=== PATIENT | female | born 1930 | race Caucasian/White ===

== ENCOUNTER 2017-08-25 13:01 | Inpatient (IN) | payer OTHER, MEDICARE ==
[2017-08-25 13:14] VITALS: BMI 25.0
--- NOTE | 2017-08-25 13:39 | PDOC ---
History of Present Illness - General Chief Complaint: Altered Mental Status Stated Complaint: TREMORS, ALTERED MENTAL STATUS Time Seen by Provider: 08/25/17 13:29 History Source: Patient, Family Exam Limitations: Dementia - History of Present Illness Initial Comments: 08/25/17 14:22 Patient is an 87 year old female presenting with one day of increasing agitation and decline in mental status. 08/25/17 14:48 Past History - Past Medical History Allergies/Adverse Reactions: Allergies Allergy/AdvReac Type Severity Reaction Status Date / Time No Known Allergies Allergy Verified 08/25/17 13:13 Cardiac Disorders: Yes Dementia: Yes HTN: Yes Other medical history: ? ABD ANEURYSM, VS ABD AORTIC ANEURYSM - Suicide/Smoking/Psychosocial Hx Smoking History: Never smoked Hx Alcohol Use: No Drug/Substance Use Hx: No Substance Use Type: None *Physical Exam - Vital Signs Last Vital Signs Temp Pulse Resp BP Pulse Ox 98.5 F 84 20 159/84 96 08/25/17 13:07 08/25/17 13:07 08/25/17 13:07 08/25/17 13:07 08/25/17 13:07 ED Treatment Course - LABORATORY CBC & Chemistry Diagram: 08/25/17 14:36 08/25/17 14:36 Medical Decision Making - Medical Decision Making 87 year old with history of advanced dementia presenting after one day of increased aggregation and confusion and c/o chest/abdomen pain. Patient was also wondering unobserved and is c/o headache. Ddx includes but is not limited to traumatic head injury, infection, advancing dementia EKG CXR CBC, CMP Cardiac enzymes Lipase UA Monitor and reassess 08/25/17 14:23 Rectal temp 99.9, afebrile 08/25/17 14:32 UA reviewed and non-concerning 08/25/17 15:05 CBC WBC 9.0 K/mm3 (4.0-10.0) 08/25/17 14:36 RBC 4.41 M/mm3 (3.60-5.2) 08/25/17 14:36 Hgb 12.9 GM/dL (10.7-15.3) 08/25/17 14:36 Hct 38.6 % (32.4-45.2) 08/25/17 14:36 MCV 87.5 fl (80-96) 08/25/17 14:36 MCH 29.3 pg (25.7-33.7) 08/25/17 14:36 MCHC 33.5 g/dl (32.0-36.0) 08/25/17 14:36 RDW 14.0 % (11.6-15.6) 08/25/17 14:36 Plt Count 163 K/MM3 (134-434) 08/25/17 14:36 MPV 7.3 fl (7.5-11.1) L 08/25/17 14:36 Neutrophils % 69.2 % (42.8-82.8) 08/25/17 14:36 Lymphocytes % 21.7 % (8-40) 08/25/17 14:36 Monocytes % 7.2 % (3.8-10.2) 08/25/17 14:36 Eosinophils % 1.1 % (0-4.5) 08/25/17 14:36 Basophils % 0.8 % (0-2.0) 08/25/17 14:36 Within normal limits 08/25/17 15:48 Labs and imaging reviewed, benign labs, chest xray and head ct negative for acute pathology, UA negative for infection Repeat abdominal exam significant for continued mild RUQ tenderness 08/25/17 16:05 Requesting home Seroquil medication, 100 mg 08/25/17 16:06 *DC/Admit/Observation/Transfer Diagnosis at time of Disposition: Altered mental status Chest pain Qualifiers: Chest pain type: unspecified Qualified Code(s): R07.9 - Chest pain, unspecified ; R07.9 - Chest pain, unspecified - Discharge Dispostion Condition at time of disposition: Stable Admit: Yes
[2017-08-25 14:24] LABS: URINE APPEARANCE CLEAR; URINE BILIRUBIN NEGATIVE (NEGATIVE); URINE BLOOD NEGATIVE (NEGATIVE); URINE COLOR YELLOW; URINE GLUCOSE (UA) NEGATIVE (NEGATIVE); URINE KETONE NEGATIVE (NEGATIVE); URINE NITRITE NEGATIVE (NEGATIVE); URINE PROTEIN NEGATIVE (NEGATIVE); URINE UROBILINOGEN NEGATIVE mg/dL (0.2-1.0)
[2017-08-25 14:40] LABS: BASOPHIL 0.8 % (0-2.0); EOSINOPHIL 1.1 % (0-4.5); MCH 29.3 pg (25.7-33.7); MCHC 33.5 g/dl (32.0-36.0); MEAN CELL VOLUME 87.5 fl (80-96); MEAN PLT VOLUME 7.3 fl (7.5-11.1); NEUTROPHILS 69.2 % (42.8-82.8); PLATELET COUNT 163 K/MM3 (134-434)
--- NOTE | 2017-08-25 15:21 | PDOC ---
Attending Attestation - Resident Resident Name: Karin,Jon - ED Attending Attestation I have performed the following: I have examined & evaluated the patient, The case was reviewed & discussed with the resident, I agree w/resident's findings & plan, Exceptions are as noted - Medical Decision Making 08/25/17 15:19 I, Dr. Yvrose Aaron, DO, attest that this document has been prepared under my direction and personally reviewed by me in its entirety. I further attest, that it accurately reflects all work, treatment, procedures and medical decision -making performed by me. a/p: 87yo demented female with worsening agitation, ran away from home, and lower abd pain/dysuria/cp/[place] -head ct -ekg/cxr -labs -ua -straight cath -reassess -family at the bedside and agrees with the plan 08/25/17 16:32 no cp at this time. discussed labs with the patients family. will place in obs for further eval of cp. discussed with dr. ramirez, requests consult to dr. montano. 08/25/17 16:33 ruq ultrasound is negative for acute yaron, no stones, no gb wall thickening, no pericholecystic fluid <Yvrose Aaron - Last Filed: 08/25/17 16:33> - HPI HPI: 08/25/17 16:37 Patient is a 87 year old female with a significant past medical history of Dementia, who presents to the ED s/p altered mental status. As per patient's niece, patient was not at baseline this morning and was noted to be agitated and violent. She reports patient was in shower this morning when she was noted to have walked out of the house and down the street. Patient reports experiencing intermittent chest pain and headache secondary to altered mental status. In the ED patient reports having slight abdominal pain and dysuria secondary to altered mental status. As per patient's niece, patient has been experiencing slight trembling since this morning. Denies fever, chills. Denies coughing, vomiting. Denies SOB. Denies any other symptoms. Allergies: None Surgical history: None Social history: Lives with niece: PMD: Dr. Gonzalez - Physicial Exam PE: 08/25/17 16:37 GENERAL: +Alert to person. +Awareness of incident. +Confused. Awake, and fully oriented, in no acute distress HEAD: No signs of trauma EYES: PERRLA, EOMI, sclera anicteric, conjunctiva clear ENT: Auricles normal inspection, hearing grossly normal, nares patent, oropharynx clear without exudates. Moist mucosa NECK: Normal ROM, supple, no lymphadenopathy, JVD, or masses LUNGS: Breath sounds equal, clear to auscultation bilaterally. No wheezes, and no crackles HEART: +Systolic ejection murmur Regular rate and rhythm, normal S1 and S2, rubs or gallops ABDOMEN: +mild super pubic tenderness. Soft, nontender, normoactive bowel sounds. No guarding, no rebound. No masses EXTREMITIES: +Trace edema in legs bilaterally. Normal range of motion. No clubbing or cyanosis. No cords, erythema, or tenderness NEUROLOGICAL: Cranial nerves II through XII grossly intact. Normal speech, normal gait SKIN: Warm, Dry, normal turgor, no rashes or lesions noted. - Medical Decision Making 08/25/17 16:37 Documentation prepared by Adam Killian, acting as medical affairs manager for Yvrose Aaron DO, MD/. <Adam Killian - Last Filed: 08/25/17 16:37> Heart Score/ECG Review - ECG Intrepretation Comment:: 08/25/17 15:21 sinus at 73, LVH, nl axis, no acute s/t twave findings <Yvrose Aaron - Last Filed: 08/25/17 16:33>
[2017-08-25 15:38] LABS: ALBUMIN 3.4 g/dl (3.4-5.0); ANION GAP 7 (8-16); BILIRUBIN,TOTAL 0.5 mg/dL (0.2-1.0); CALCIUM 8.3 mg/dL (8.5-10.1); CO2 30 mmol/L (21-32); CREATININE 0.6 mg/dL (0.55-1.02); GLUCOSE,RANDOM 128 mg/dL (74-106); SGPT/ALT 18 U/L (12-78); TOT PROT 6.2 g/dl (6.4-8.2)
[2017-08-25 15:41] LABS: ALK PHOS 88 U/L (45-117); CPK 63 IU/L (26-192); TROPONIN I < 0.02 ng/ml (0.00-0.05)
[2017-08-25 15:43] LABS: SGOT/AST 19 U/L (15-37)
[2017-08-25] MEDS ORDERED: QUEtiapine FUMARATE 100 MG TABLET (FP) PO ONE (16:05)
[2017-08-25] MEDS ORDERED: QUEtiapine FUMARATE 100 MG TABLET (FP) ONE (16:09)
[2017-08-25 17:44] LABS: URINE LEUK ESTERASE Negative (NEGATIVE)
[2017-08-25 19:41] LABS: CHOLESTEROL 131 mg/dL (50-200)
[2017-08-25] MEDS: CARVEDILOL 3.125 MG TABLET (FP) PO SCH (22:40)
[2017-08-26] MEDS: LORazepam 2 MG/ML SDV VIAL IM PRN (05:58)
[2017-08-26 08:09] LABS: ALK PHOS 102 U/L (45-117); ANION GAP 9 (8-16); CALCIUM 8.7 mg/dL (8.5-10.1); CO2 28 mmol/L (21-32); CREATININE 0.7 mg/dL (0.55-1.02); GLUCOSE,RANDOM 141 mg/dL (74-106); SGOT/AST 19 U/L (15-37); SGPT/ALT 19 U/L (12-78); TOT PROT 6.9 g/dl (6.4-8.2)
[2017-08-26] MEDS ORDERED: PATIENT'S OWN MEDICATION (NON-FORMULARY) (Omeprazole Magnesium [Prilosec] 20 MG) PO SCH (10:00)
[2017-08-26] MEDS ORDERED: PATIENT'S OWN MEDICATION (NON-FORMULARY) (Multivit-Min/Fa/Lycopen/Lutein [Centrum Silver T PO SCH (10:00)
--- NOTE | 2017-08-26 11:18 | CONSULT ---
Consult Consult Specialty:: Cardiology (Dr. Kate) Referred by:: Medicine Reason for Consultation:: Chest pain - History of Present Illness Chief Complaint: Chest pain History of Present Illness: 87 yo female with HTN History limited by poor historian given dementia and no prior visits to [facility] Brought to the ED du to decline in mental status, aggitation and reported chest pain On questioning, patient does endorse episodes of epigastric discomfort and bilateral flank pain, but no chest/substernal discomfort Has ? history (according to the chart) of abdominal aortic aneurysm In ED noted Temp 99.9 Cardiac enzymes were negative x2 Currently she denies any discomfort - History Source History Provided By: Patient, Medical Record Limitations to Obtaining History: Dementia - Past Medical History RESIDENTIAL AIDE: Yes: Dementia Cardio/Vascular: Yes: Aneurysm ...: No - Alcohol/Substance Use Hx Alcohol Use: No - Smoking History Smoking history: Never smoked Have you smoked in the past 12 months: No Home Medications - Allergies Allergies/Adverse Reactions: Allergies Allergy/AdvReac Type Severity Reaction Status Date / Time No Known Allergies Allergy Verified 08/25/17 13:13 - Home Medications Home Medications: Ambulatory Orders Carvedilol [Coreg -] 3.125 mg PO BID 08/25/17 Cyanocobalamin (Vitamin B-12) [B-12] 1,000 mcg PO DAILY 08/25/17 Digoxin 125 mcg PO DAILY 08/25/17 Losartan Potassium [Cozaar] 50 mg PO DAILY 08/25/17 Multivit-Min/FA/Lycopen/Lutein [Centrum Silver Tablet] 1 tab PO DAILY 08/25/17 Omeprazole Magnesium [Prilosec] 20 mg PO DAILY 08/25/17 Quetiapine Fumarate [Seroquel] 100 tab PO DAILY 08/25/17 Torsemide [Demadex -] 20 mg PO Q2D 08/25/17 Review of Systems Unable to obtain ROS, reason: Limited ROS by dementia Physical Exam Vital Signs: Vital Signs Temperature 98 F 08/26/17 10:00 Pulse Rate 88 08/26/17 10:00 Respiratory Rate 18 08/26/17 10:00 Blood Pressure 126/59 08/26/17 10:00 O2 Sat by Pulse Oximetry (%) 97 08/26/17 10:00 Constitutional: Yes: No Distress, Calm Eyes: Yes: WNL HENT: Yes: WNL Neck: Yes: WNL Cardiovascular: Yes: Regular Rate and Rhythm Respiratory: Yes: CTA Bilaterally Gastrointestinal: Yes: Normal Bowel Sounds, Other (No pulsatile mass) Extremities: Yes: WNL Edema: No Labs: CBC, BMP 08/26/17 05:35 Imaging - Results Chest X-ray: Image Reviewed (Heavily calcified aorta) X-ray: Image Reviewed EKG: Image Reviewed (Done at 09:57 on 08/26/2017 NSR with LVH and LAD) Assessment/Plan 87 yo female with HTN Admitted with mental status changes and aggitation Episode of reported chest pain 1) Chest pain -Pain on history is more epigastric/flank -ECG without ischemic changes and enzymes negative -Would obtain records of the history of a reported AAA, and if true would consider imaging her aorta with CTA as this may contribute to epigastric or flank pain. On CXR her aortic arch is heavily calcified. Tele so far has shown NSR with PACs -Would continue he current CV regimen -Unclear why she is on Dig at home and may be reasonable to continue tele to see if she has PAF. Would check Dig level as cause of MS change. 2) HTN -Bp well controlled -Continue losartan and carvedilol
[2017-08-26] MEDS ORDERED: QUEtiapine FUMARATE 50 MG TABLET ONE (11:33)
[2017-08-26] MEDS: MULTIVITAMINS (DAILY MVI) TABLET (FP) PO SCH (11:35)
[2017-08-26] MEDS: QUEtiapine FUMARATE 100 MG TABLET (FP) PO SCH (11:35)
[2017-08-26] MEDS: CYANOCOBALAMIN 1,000 MCG TABLET (FP) PO SCH (11:35)
[2017-08-26] MEDS: LOSARTAN POTASSIUM 25 MG TABLET PO SCH (11:36)
[2017-08-26] MEDS: CARVEDILOL 3.125 MG TABLET (FP) PO SCH ×2 (11:36→21:56)
[2017-08-26] MEDS: ENOXAPARIN NA (PORCINE) 40 MG/0.4 ML DISP.SYRIN SQ SCH (11:36)
[2017-08-26] MEDS: PANTOPRAZOLE 20 MG TABLET (FP) PO SCH (11:36)
[2017-08-26] MEDS: DIGOXIN 0.125 MG TABLET (FP) PO SCH (11:37)
--- NOTE | 2017-08-26 12:05 | HP ---
Admitting History and Physical - Primary Care Physician PCP: Franco Gonzalez - Admission Chief Complaint: Acute Agitation History of Present Illness: Elderly F recently moved to are from [place] H/O HTN, CHF, High Cholesterol, Dementia , BIB family with an episode of agitation, patient was very agitated and walked out of the house in Ed c/o chest pain admitted for further evaluation, patient is unable to provide much information, as per family patient has H/O Dementia and agittaion in the past but this episode was more intense, no documented fever, chills, nausea, vomiting, diarrhea head traum, in ED EKG unremarkale, CBC , BMP , Trop all normal. History Source: Patient, Family Member - Past Medical History REGIONAL OFFICE COORDINATOR: Yes: Dementia Cardiovascular: Yes: Aneurysm ...: No - Smoking History Smoking history: Never smoked Have you smoked in the past 12 months: No - Alcohol/Substance Use Hx Alcohol Use: No Home Medications - Allergies Allergies/Adverse Reactions: Allergies Allergy/AdvReac Type Severity Reaction Status Date / Time No Known Allergies Allergy Verified 08/25/17 13:13 - Home Medications Home Medications: Ambulatory Orders Carvedilol [Coreg -] 3.125 mg PO BID 08/25/17 Cyanocobalamin (Vitamin B-12) [B-12] 1,000 mcg PO DAILY 08/25/17 Digoxin 125 mcg PO DAILY 08/25/17 Losartan Potassium [Cozaar] 50 mg PO DAILY 08/25/17 Multivit-Min/FA/Lycopen/Lutein [Centrum Silver Tablet] 1 tab PO DAILY 08/25/17 Omeprazole Magnesium [Prilosec] 20 mg PO DAILY 08/25/17 Quetiapine Fumarate [Seroquel] 100 tab PO DAILY 08/25/17 Torsemide [Demadex -] 20 mg PO Q2D 08/25/17 Review of Systems - Review of Systems Constitutional: reports: No Symptoms HENT: reports: No Symptoms, Difficult Swallowing Neck: reports: No Symptoms, Decreased ROM Cardiovascular: reports: Chest Pain Respiratory: reports: SOB Gastrointestinal: reports: No Symptoms Genitourinary: reports: No Symptoms Physical Examination Vital Signs: Vital Signs Temperature 98 F 08/26/17 10:00 Pulse Rate 90 08/26/17 11:37 Respiratory Rate 18 08/26/17 10:00 Blood Pressure 126/59 08/26/17 10:00 O2 Sat by Pulse Oximetry (%) 97 08/26/17 10:00 Constitutional: Yes: Well Nourished, No Distress, Other (agitated) Eyes: Yes: Conjunctiva Clear, EOM Intact HENT: Yes: WNL, Atraumatic, Normocephalic Neck: Yes: WNL, Supple, Trachea Midline Cardiovascular: Yes: Regular Rate and Rhythm, Pulse Irregular, Murmur. No: Bruit, JVD Respiratory: Yes: Regular, CTA Bilaterally Gastrointestinal: Yes: WNL, Normal Bowel Sounds, Soft Musculoskeletal: Yes: WNL. No: Back Pain Extremities: Yes: WNL. No: Calf Tenderness Edema: LLE: 1+, RLE: 1+ Peripheral Pulses: Left Doralis Pedis: 1+, Right Dorsalis Pedis: 1+ Neurological: Yes: WNL, Oriented Labs: CBC, BMP 08/26/17 05:35 CBC WBC 9.0 K/mm3 (4.0-10.0) 08/25/17 14:36 RBC 4.41 M/mm3 (3.60-5.2) 08/25/17 14:36 Hgb 12.9 GM/dL (10.7-15.3) 08/25/17 14:36 Hct 38.6 % (32.4-45.2) 08/25/17 14:36 MCV 87.5 fl (80-96) 08/25/17 14:36 MCH 29.3 pg (25.7-33.7) 08/25/17 14:36 MCHC 33.5 g/dl (32.0-36.0) 08/25/17 14:36 RDW 14.0 % (11.6-15.6) 08/25/17 14:36 Plt Count 163 K/MM3 (134-434) 08/25/17 14:36 MPV 7.3 fl (7.5-11.1) L 08/25/17 14:36 Neutrophils % 69.2 % (42.8-82.8) 08/25/17 14:36 Lymphocytes % 21.7 % (8-40) 08/25/17 14:36 Monocytes % 7.2 % (3.8-10.2) 08/25/17 14:36 Eosinophils % 1.1 % (0-4.5) 08/25/17 14:36 Basophils % 0.8 % (0-2.0) 08/25/17 14:36 CMP Sodium 139 mmol/L (136-145) 08/26/17 05:35 Potassium 3.9 mmol/L (3.5-5.1) 08/26/17 05:35 Chloride 102 mmol/L (98-107) 08/26/17 05:35 Carbon Dioxide 28 mmol/L (21-32) 08/26/17 05:35 Anion Gap 9 (8-16) 08/26/17 05:35 BUN 12 mg/dL (7-18) 08/26/17 05:35 Creatinine 0.7 mg/dL (0.55-1.02) 08/26/17 05:35 Creat Clearance w eGFR > 60 (>60) 08/26/17 05:35 Random Glucose 141 mg/dL (74-106) H 08/26/17 05:35 Hemoglobin A1c % 6.5 % (4.8-6.0) H 08/26/17 05:35 Calcium 8.7 mg/dL (8.5-10.1) 08/26/17 05:35 Total Bilirubin 1.0 mg/dL (0.2-1.0) D 08/26/17 05:35 AST 19 U/L (15-37) 08/26/17 05:35 ALT 19 U/L (12-78) 08/26/17 05:35 Alkaline Phosphatase 102 U/L (45-117) 08/26/17 05:35 Creatine Kinase 63 IU/L (26-192) 08/25/17 14:36 Troponin I 0.02 ng/ml (0.00-0.05) 08/25/17 19:00 Total Protein 6.9 g/dl (6.4-8.2) 08/26/17 05:35 Albumin 4.0 g/dl (3.4-5.0) 08/26/17 05:35 Triglycerides 184 mg/dL (35-160) H 08/25/17 19:00 Cholesterol 131 mg/dL (50-200) 08/25/17 19:00 Total LDL Cholesterol 65 mg/dL (5-100) 08/25/17 19:00 HDL Cholesterol 47 mg/dL (40-60) 08/25/17 19:00 Lipase 95 U/L (73-393) 08/25/17 14:36 Imaging - Results X-ray: Report Reviewed (Cardiomegaly) Cat Scan: Report Reviewed (Mild atrophy) EKG: Report Reviewed (NSR at 75 LVH, LAD) Problem List - Problems (1) Altered mental status Assessment/Plan: Of unknown etiology base line Dementia, Ct head no acute changes, evaluated by Neurology consult recommend, evaluation for placement. Code(s): R41.82 - ALTERED MENTAL STATUS, UNSPECIFIED (2) Dementia Assessment/Plan: Chronic not on any treatment F/U Dementia W/U B12, TSH Code(s): F03.90 - UNSPECIFIED DEMENTIA WITHOUT BEHAVIORAL DISTURBANCE (3) HTN (hypertension) Assessment/Plan: Well controlled on current home meds Code(s): I10 - ESSENTIAL (PRIMARY) HYPERTENSION (4) Hypercholesteremia Assessment/Plan: Cont Statin F/U TSH HBa1c Code(s): E78.00 - PURE HYPERCHOLESTEROLEMIA, UNSPECIFIED (5) Chest pain Assessment/Plan: Atypical , normal serial Ce and stable EKG murmur + at base , F/U ECHO, serial CE, TSH , HBA1C, Cardiology recommondations. Code(s): R07.9 - CHEST PAIN, UNSPECIFIED Qualifiers: Chest pain type: unspecified Qualified Code(s): R07.9 - Chest pain, unspecified; R07.9 - Chest pain, unspecified (6) AAA (abdominal aortic aneurysm) Assessment/Plan: H/O AAA will screen abdomen for evaluation. Code(s): I71.4 - ABDOMINAL AORTIC ANEURYSM, WITHOUT RUPTURE Assessment/Plan Active Medications Generic Name Dose Route Start Last Admin Trade Name Freq PRN Reason Stop Dose Admin Carvedilol 3.125 mg 08/25/17 22:00 08/26/17 11:36 Coreg - PO 3.125 mg BID DAYDAY Administration Cyanocobalamin 1,000 mcg 08/26/17 10:00 08/26/17 11:35 Vitamin B12 - PO 1,000 mcg DAILY DAYDAY Administration Digoxin 0.125 mg 08/26/17 10:00 08/26/17 11:37 Lanoxin - PO 0.125 mg DAILY DAYDAY Administration Enoxaparin Sodium 40 mg 08/26/17 10:00 08/26/17 11:36 Lovenox - SQ 40 mg DAILY DAYDAY Administration Lorazepam 0.5 mg 08/26/17 05:43 08/26/17 05:58 Ativan Injection - IM 0.5 mg Q8H PRN Administration AGITATION Losartan Potassium 50 mg 08/26/17 10:00 08/26/17 11:36 Cozaar - PO 50 mg DAILY DAYDAY Administration Multivitamins/Minerals/Vitamin C 1 tab 08/26/17 10:00 08/26/17 11:35 Tab-A-Vit - PO 1 tab DAILY DAYDAY Administration Pantoprazole Sodium 20 mg 08/26/17 10:00 08/26/17 11:36 Protonix - PO 20 mg DAILY DAYDAY Administration Quetiapine Fumarate 100 mg 08/26/17 10:00 08/26/17 11:35 Seroquel - PO 100 mg DAILY DAYDAY Administration Torsemide 20 mg 08/27/17 10:00 Demadex - PO Q2D DAYDAY
--- NOTE | 2017-08-26 17:30 | CON.NEURO ---
Consult - Past Medical History MANAGER FOOD: Yes: Dementia Cardio/Vascular: Yes: Aneurysm ...: No - Alcohol/Substance Use Hx Alcohol Use: No - Smoking History Smoking history: Never smoked Have you smoked in the past 12 months: No Home Medications - Allergies Allergies/Adverse Reactions: Allergies Allergy/AdvReac Type Severity Reaction Status Date / Time No Known Allergies Allergy Verified 08/25/17 13:13 - Home Medications Home Medications: Ambulatory Orders Carvedilol [Coreg -] 3.125 mg PO BID 08/25/17 Cyanocobalamin (Vitamin B-12) [B-12] 1,000 mcg PO DAILY 08/25/17 Digoxin 125 mcg PO DAILY 08/25/17 Losartan Potassium [Cozaar] 50 mg PO DAILY 08/25/17 Multivit-Min/FA/Lycopen/Lutein [Centrum Silver Tablet] 1 tab PO DAILY 08/25/17 Omeprazole Magnesium [Prilosec] 20 mg PO DAILY 08/25/17 Quetiapine Fumarate [Seroquel] 100 tab PO DAILY 08/25/17 Torsemide [Demadex -] 20 mg PO Q2D 08/25/17 Physical Exam-Neuro Vital Signs: Vital Signs Temperature 97.4 F L 08/26/17 14:00 Pulse Rate 119 H 08/26/17 14:00 Respiratory Rate 20 08/26/17 14:00 Blood Pressure 119/64 08/26/17 14:00 O2 Sat by Pulse Oximetry (%) 97 08/26/17 10:00 Labs: CBC, BMP 08/26/17 05:35 Imaging - Results Cat Scan: Report Reviewed Assessment/Plan CC brought to hospital for agitation and chest pain HPI 87 year old female history of b12 deficiency , hypertension, was brought [facility] for agitation and confusion. There is no fall or trauma to head, no fever or seizure like activity. Initial work up including xray of chest, ua and ct ehad was unremarkable. As per chart she has history of b12 deficiency and on b12 supplentation. Past Medical History as above. Home Medciation Carvedilol [Coreg -] 3.125 mg PO BID 08/25/17 Cyanocobalamin (Vitamin B-12) [B-12] 1,000 mcg PO DAILY 08/25/17 Digoxin 125 mcg PO DAILY 08/25/17 Losartan Potassium [Cozaar] 50 mg PO DAILY 08/25/17 Multivit-Min/FA/Lycopen/Lutein [Centrum Silver Tablet] 1 tab PO DAILY 08/25/17 Omeprazole Magnesium [Prilosec] 20 mg PO DAILY 08/25/17 Quetiapine Fumarate [Seroquel] 100 tab PO DAILY 08/25/17 Torsemide [Demadex -] 20 mg PO Q2D 08/25/17 Family History , ROS Medication Reviewed in chart Neurological Examiantion drowsy ( just got ativan few minute ago) , patient is opening her and not able to follow command, not agitated at this time moving eye in all direction, no face asymmetry wirhdraws to pain CT HEAD is normal Assessment- Decline due to dementia, ct head is unremarkable Plan -- continue seroquel would do b12,folate tsh she would need placement as family cant handle her at home Feel free to call me if you have any question Chaitanya Warner MD
[2017-08-27] MEDS: LORazepam 2 MG/ML SDV VIAL IM PRN ×2 (03:58→13:56)
[2017-08-27 06:58] LABS: BASOPHIL 0.9 % (0-2.0); EOSINOPHIL 4.2 % (0-4.5); MCH 29.1 pg (25.7-33.7); MCHC 33.2 g/dl (32.0-36.0); MEAN CELL VOLUME 87.6 fl (80-96); MEAN PLT VOLUME 7.9 fl (7.5-11.1); PLATELET COUNT 162 K/MM3 (134-434); WHITE BLOOD COUNT 6.8 K/mm3 (4.0-10.0)
[2017-08-27 07:14] LABS: ANION GAP 12 (8-16); CALCIUM 8.5 mg/dL (8.5-10.1); CO2 28 mmol/L (21-32); CREATININE 0.6 mg/dL (0.55-1.02); GLUCOSE,RANDOM 128 mg/dL (74-106)
[2017-08-27 07:26] LABS: DIGOXIN LEVEL 0.9479 ng/ml (0.8-2.0)
[2017-08-27 08:27] LABS: DIGOXIN LEVEL 0.8432 ng/ml (0.8-2.0)
--- NOTE | 2017-08-27 09:12 | PN ---
Progress Note, Physician Chief Complaint: abd pain, ? cp History of Present Illness: denies any cp, abd pain/flank pain today no sob no palpitations no leg swelling - Current Medication List Current Medications: Active Medications Carvedilol (Coreg -) 3.125 mg PO BID [facility] Last Admin: 08/26/17 21:56 Dose: 3.125 mg Cyanocobalamin (Vitamin B12 -) 1,000 mcg PO DAILY [facility] Last Admin: 08/26/17 11:35 Dose: 1,000 mcg Digoxin (Lanoxin -) 0.125 mg PO DAILY [facility] Last Admin: 08/26/17 11:37 Dose: 0.125 mg Enoxaparin Sodium (Lovenox -) 40 mg SQ DAILY [facility] Last Admin: 08/26/17 11:36 Dose: 40 mg Lorazepam (Ativan Injection -) 0.5 mg IM Q8H PRN PRN Reason: AGITATION Last Admin: 08/27/17 03:58 Dose: 0.5 mg Losartan Potassium (Cozaar -) 50 mg PO DAILY [facility] Last Admin: 08/26/17 11:36 Dose: 50 mg Multivitamins/Minerals/Vitamin C (Tab-A-Vit -) 1 tab PO DAILY [facility] Last Admin: 08/26/17 11:35 Dose: 1 tab Pantoprazole Sodium (Protonix -) 20 mg PO DAILY [facility] Last Admin: 08/26/17 11:36 Dose: 20 mg Quetiapine Fumarate (Seroquel -) 100 mg PO DAILY [facility] Last Admin: 08/26/17 11:35 Dose: 100 mg Torsemide (Demadex -) 20 mg PO Q2D [facility] - Objective Vital Signs: Vital Signs Temperature 97.1 F L 08/27/17 05:39 Pulse Rate 96 H 08/27/17 05:39 Respiratory Rate 20 08/27/17 05:39 Blood Pressure 120/62 08/27/17 05:39 O2 Sat by Pulse Oximetry (%) 98 08/26/17 21:00 Constitutional: Yes: Well Nourished, No Distress, Calm Cardiovascular: Yes: Regular Rate and Rhythm, Murmur (1/6 SUNNY rusb), S1, S2. No : Gallop Respiratory: Yes: Regular, CTA Bilaterally (anteriorly (yandel vest on)). No: Accessory Muscle Use, Rales, Wheezes Extremities: No: Cold Edema: No Neurological: Yes: Alert. No: Seizure Psychiatric: No: Agitated Labs: CBC, BMP 08/27/17 06:25 08/27/17 06:25 - ....Imaging EKG: Other (tele: NSR) Assessment/Plan 87 yo female with HTN, admitted with mental status changes and agitation and reported chest pain prior to ER. Chest pain -Pain on history is more epigastric/flank,though confounded by pt dementia -ECG without ischemic changes and enzymes negative x2 (4.5 hrs apart) -rpt enzymes today -reported history of a AAA. office notes with no documentation of this or prior imaging. pt unable to clarify hx -echo being done at bedside--prelim with signif aorta root dilation -will check CTA of thoracic/aorta to r/o large, potentially symptomatic T/AAA ( abdominal/flank pain). likely not a candidate for open repair given baseline dementia, though ? if EVAR should/could be considered -unclear why she is on dig at home, trying to obtain records--cont med for now ( level ok here) HTN -BP well controlled -Continue home losartan and carvedilol agitation/MS change: -neuro note appreciated--likely due to progression of dementia -CT head neg
[2017-08-27 09:42] LABS: CPK 97 IU/L (26-192); TROPONIN I < 0.02 ng/ml (0.00-0.05)
--- NOTE | 2017-08-27 10:15 | EKG ---
Test Reason : Blood Pressure : / mmHG Vent. Rate : 080 BPM Atrial Rate : 080 BPM P-R Int : 178 ms QRS Dur : 096 ms QT Int : 362 ms P-R-T Axes : 033 -31 007 degrees QTc Int : 417 ms NORMAL SINUS RHYTHM LEFT AXIS DEVIATION LEFT VENTRICULAR HYPERTROPHY WITH REPOLARIZATION ABNORMALITY ABNORMAL ECG WHEN COMPARED WITH ECG OF 25-AUG-2017 14:11, NO SIGNIFICANT CHANGE WAS FOUND Confirmed by FRANCIS OWEN, GLORIA ([id number]) on 08/27/2017 10:15:36 AM Referred By: Yolanda MARQUEZ Confirmed By:GLORIA BLANCO MD
--- NOTE | 2017-08-27 10:24 | PN ---
Progress Note (short form) - Note Progress Note: Neurology History of Present Illness: 87 y/o F recently moved to [facility] from [place] H/O HTN, CHF, High Cholesterol, Dementia , BIB family with an episode of agitation, patient was very agitated and was contacted over the weekend by answering service. Spoke to daughter and advised to bring to ER where he c/o chest pain admitted for further evaluation, patient is unable to provide much information, as per family patient has H/O Dementia and agittaion in the past but this episode was more intense, no documented fever, chills, nausea, vomiting, diarrhea head traum, in ED EKG unremarkale, CBC , BMP , Trop all normal. There is concern of his ability to care for self and daughter reported he has been progressively worsening. CT head completed and did not show acute changes. Seen by Dr. Thapa over the weekend who was covering. Active Medications Carvedilol (Coreg -) 3.125 mg PO BID [facility] Last Admin: 08/26/17 21:56 Dose: 3.125 mg Cyanocobalamin (Vitamin B12 -) 1,000 mcg PO DAILY [facility] Last Admin: 08/26/17 11:35 Dose: 1,000 mcg Digoxin (Lanoxin -) 0.125 mg PO DAILY [facility] Last Admin: 08/26/17 11:37 Dose: 0.125 mg Enoxaparin Sodium (Lovenox -) 40 mg SQ DAILY [facility] Last Admin: 08/26/17 11:36 Dose: 40 mg Lorazepam (Ativan Injection -) 0.5 mg IM Q8H PRN PRN Reason: AGITATION Last Admin: 08/27/17 03:58 Dose: 0.5 mg Losartan Potassium (Cozaar -) 50 mg PO DAILY [facility] Last Admin: 08/26/17 11:36 Dose: 50 mg Multivitamins/Minerals/Vitamin C (Tab-A-Vit -) 1 tab PO DAILY [facility] Last Admin: 08/26/17 11:35 Dose: 1 tab Pantoprazole Sodium (Protonix -) 20 mg PO DAILY [facility] Last Admin: 08/26/17 11:36 Dose: 20 mg Quetiapine Fumarate (Seroquel -) 100 mg PO DAILY [facility] Last Admin: 08/26/17 11:35 Dose: 100 mg Torsemide (Demadex -) 20 mg PO Q2D [facility] Physical Examination Vital Signs: Vital Signs Period Temp Pulse Resp BP Sys/Carranza Pulse Ox Last 24 Hr 97.0 F-97.8 F 68-119 18-20 119-132/62-80 98 Constitutional: Yes: Well Nourished, No Distress, Other (agitated) Eyes: Yes: Conjunctiva Clear, EOM Intact HENT: Yes: WNL, Atraumatic, Normocephalic Neck: Yes: WNL, Supple, Trachea Midline Cardiovascular: Yes: Regular Rate and Rhythm, Pulse Irregular, Murmur. No: Bruit, JVD Respiratory: Yes: Regular, CTA Bilaterally Gastrointestinal: Yes: WNL, Normal Bowel Sounds, Soft Musculoskeletal: Yes: WNL. No: Back Pain Extremities: Yes: WNL. No: Calf Tenderness Edema: LLE: 1+, RLE: 1+ Peripheral Pulses: Left Doralis Pedis: 1+, Right Dorsalis Pedis: 1+ Neurological: CN intact, strength equal, b/l, sensory normal, finger to nose intact Labs: CBC, BMP 08/26/17 05:35 CBC WBC 9.0 K/mm3 (4.0-10.0) 08/25/17 14:36 RBC 4.41 M/mm3 (3.60-5.2) 08/25/17 14:36 Hgb 12.9 GM/dL (10.7-15.3) 08/25/17 14:36 Hct 38.6 % (32.4-45.2) 08/25/17 14:36 MCV 87.5 fl (80-96) 08/25/17 14:36 MCH 29.3 pg (25.7-33.7) 08/25/17 14:36 MCHC 33.5 g/dl (32.0-36.0) 08/25/17 14:36 RDW 14.0 % (11.6-15.6) 08/25/17 14:36 Plt Count 163 K/MM3 (134-434) 08/25/17 14:36 MPV 7.3 fl (7.5-11.1) L 08/25/17 14:36 Neutrophils % 69.2 % (42.8-82.8) 08/25/17 14:36 Lymphocytes % 21.7 % (8-40) 08/25/17 14:36 Monocytes % 7.2 % (3.8-10.2) 08/25/17 14:36 Eosinophils % 1.1 % (0-4.5) 08/25/17 14:36 Basophils % 0.8 % (0-2.0) 08/25/17 14:36 CMP Sodium 139 mmol/L (136-145) 08/26/17 05:35 Potassium 3.9 mmol/L (3.5-5.1) 08/26/17 05:35 Chloride 102 mmol/L (98-107) 08/26/17 05:35 Carbon Dioxide 28 mmol/L (21-32) 08/26/17 05:35 Anion Gap 9 (8-16) 08/26/17 05:35 BUN 12 mg/dL (7-18) 08/26/17 05:35 Creatinine 0.7 mg/dL (0.55-1.02) 08/26/17 05:35 Creat Clearance w eGFR > 60 (>60) 08/26/17 05:35 Random Glucose 141 mg/dL (74-106) H 08/26/17 05:35 Hemoglobin A1c % 6.5 % (4.8-6.0) H 08/26/17 05:35 Calcium 8.7 mg/dL (8.5-10.1) 08/26/17 05:35 Total Bilirubin 1.0 mg/dL (0.2-1.0) D 08/26/17 05:35 AST 19 U/L (15-37) 08/26/17 05:35 ALT 19 U/L (12-78) 08/26/17 05:35 Alkaline Phosphatase 102 U/L (45-117) 08/26/17 05:35 Creatine Kinase 63 IU/L (26-192) 08/25/17 14:36 Troponin I 0.02 ng/ml (0.00-0.05) 08/25/17 19:00 Total Protein 6.9 g/dl (6.4-8.2) 08/26/17 05:35 Albumin 4.0 g/dl (3.4-5.0) 08/26/17 05:35 Triglycerides 184 mg/dL (35-160) H 08/25/17 19:00 Cholesterol 131 mg/dL (50-200) 08/25/17 19:00 Total LDL Cholesterol 65 mg/dL (5-100) 08/25/17 19:00 HDL Cholesterol 47 mg/dL (40-60) 08/25/17 19:00 Lipase 95 U/L (73-393) 08/25/17 14:36 Imaging X-ray: Report Reviewed (Cardiomegaly) Cat Scan: Report Reviewed (Mild atrophy) EKG: Report Reviewed (NSR at 75 LVH, LAD) Plan 87 y/o F recently moved to [facility] from [place] H/O HTN, CHF, High Cholesterol, Dementia , BIB family with an episode of agitation, patient was very agitated and was contacted over the weekend by answering service. Spoke to daughter and advised to bring to ER where he c/o chest pain admitted for further evaluation, patient is unable to provide much information, as per family patient has H/O Dementia and agittaion in the past but this episode was more intense, no documented fever, chills, nausea, vomiting, diarrhea head traum, in ED EKG unremarkale, CBC , BMP , Trop all normal. There is concern of his ability to care for self and daughter reported he has been progressively worsening. CT head completed and did not show acute changes. Seen by Dr. Thapa over the weekend who was covering. This AM, spoke to nurse, daughter did not want to start Aricept. Seroquel being continued. Placement may be needed. Monitor blood pressure Goal range < 140/90 Continue Statin for HLD Fall precautions Consider psych consult Maintain IV/PO hydration Frequent reorientation
[2017-08-27] MEDS ORDERED: QUEtiapine FUMARATE 50 MG TABLET ONE (10:35)
[2017-08-27] MEDS: QUEtiapine FUMARATE 100 MG TABLET (FP) PO SCH (10:39)
[2017-08-27] MEDS: MULTIVITAMINS (DAILY MVI) TABLET (FP) PO SCH (10:39)
[2017-08-27] MEDS: CARVEDILOL 3.125 MG TABLET (FP) PO SCH ×2 (10:39→21:26)
[2017-08-27] MEDS: TORSEMIDE 20 MG TABLET (FP) PO SCH (10:39)
[2017-08-27] MEDS: CYANOCOBALAMIN 1,000 MCG TABLET (FP) PO SCH (10:39)
[2017-08-27] MEDS: DIGOXIN 0.125 MG TABLET (FP) PO SCH (10:40)
[2017-08-27] MEDS: ENOXAPARIN NA (PORCINE) 40 MG/0.4 ML DISP.SYRIN SQ SCH (10:40)
[2017-08-27] MEDS: LOSARTAN POTASSIUM 25 MG TABLET PO SCH (10:40)
[2017-08-27] MEDS: PANTOPRAZOLE 20 MG TABLET (FP) PO SCH (10:40)
--- NOTE | 2017-08-27 14:57 | PN ---
Progress Note, Physician Chief Complaint: Patient says she feels confused. Denies cp, sob, n/v. - Current Medication List Current Medications: Active Medications Carvedilol (Coreg -) 3.125 mg PO BID [facility] Last Admin: 08/27/17 10:39 Dose: 3.125 mg Cyanocobalamin (Vitamin B12 -) 1,000 mcg PO DAILY [facility] Last Admin: 08/27/17 10:39 Dose: 1,000 mcg Digoxin (Lanoxin -) 0.125 mg PO DAILY [facility] Last Admin: 08/27/17 10:40 Dose: 0.125 mg Enoxaparin Sodium (Lovenox -) 40 mg SQ DAILY [facility] Last Admin: 08/27/17 10:40 Dose: 40 mg Lorazepam (Ativan Injection -) 0.5 mg IM Q8H PRN PRN Reason: AGITATION Last Admin: 08/27/17 13:56 Dose: 0.5 mg Losartan Potassium (Cozaar -) 50 mg PO DAILY [facility] Last Admin: 08/27/17 10:40 Dose: 50 mg Multivitamins/Minerals/Vitamin C (Tab-A-Vit -) 1 tab PO DAILY [facility] Last Admin: 08/27/17 10:39 Dose: 1 tab Pantoprazole Sodium (Protonix -) 20 mg PO DAILY [facility] Last Admin: 08/27/17 10:40 Dose: 20 mg Quetiapine Fumarate (Seroquel -) 100 mg PO DAILY [facility] Last Admin: 08/27/17 10:39 Dose: 100 mg Torsemide (Demadex -) 20 mg PO Q2D [facility] Last Admin: 08/27/17 10:39 Dose: 20 mg - Objective Vital Signs: Vital Signs Temperature 36.2 C L 08/27/17 05:39 Pulse Rate 90 08/27/17 10:40 Respiratory Rate 20 08/27/17 05:39 Blood Pressure 120/62 08/27/17 05:39 O2 Sat by Pulse Oximetry (%) 98 08/26/17 21:00 Constitutional: Yes: Well Nourished, No Distress, Calm Cardiovascular: Yes: Regular Rate and Rhythm. No: Gallop, Murmur, Rub Respiratory: Yes: Regular, CTA Bilaterally. No: Rales, Rhonchi, Wheezes Gastrointestinal: Yes: Normal Bowel Sounds, Soft. No: Distention, Tenderness Extremities: Yes: WNL Edema: No Labs: CBC, BMP 08/27/17 06:25 08/27/17 06:25 Problem List - Problems (1) Altered mental status Assessment/Plan: -unclear source of altered mental status -unsure of baseline, appears stable today -appreciate neurology assistance -continue seroquel Code(s): R41.82 - ALTERED MENTAL STATUS, UNSPECIFIED (2) Chest pain Assessment/Plan: -currently chest pain free -appreciate cardiology assistance -CTA ordered Code(s): R07.9 - CHEST PAIN, UNSPECIFIED Qualifiers: Chest pain type: unspecified Qualified Code(s): R07.9 - Chest pain, unspecified; R07.9 - Chest pain, unspecified (3) Dementia Assessment/Plan: -continue seroquel -neurology following Code(s): F03.90 - UNSPECIFIED DEMENTIA WITHOUT BEHAVIORAL DISTURBANCE (4) HTN (hypertension) Assessment/Plan: -controlled -continue coreg, torsemide, and cozaar Code(s): I10 - ESSENTIAL (PRIMARY) HYPERTENSION
[2017-08-28 07:23] LABS: BASOPHIL 1.9 % (0-2.0); EOSINOPHIL 3.7 % (0-4.5); MCH 29.1 pg (25.7-33.7); MCHC 33.1 g/dl (32.0-36.0); MEAN CELL VOLUME 87.9 fl (80-96); MEAN PLT VOLUME 8.2 fl (7.5-11.1); NEUTROPHILS 59.8 % (42.8-82.8); PLATELET COUNT 183 K/MM3 (134-434); RDW 13.8 % (11.6-15.6); WHITE BLOOD COUNT 8.3 K/mm3 (4.0-10.0)
[2017-08-28 08:01] LABS: ANION GAP 13 (8-16); CALCIUM 8.5 mg/dL (8.5-10.1); CO2 31 mmol/L (21-32); GLUCOSE,RANDOM 126 mg/dL (74-106); MAGNESIUM 2.1 mg/dL (1.8-2.4)
[2017-08-28 08:03] LABS: CREATININE 0.8 mg/dL (0.55-1.02); PHOSPHOROUS 5.1 mg/dL (2.5-4.9)
--- NOTE | 2017-08-28 09:53 | PN ---
Progress Note (short form) - Note Progress Note: Neurology History of Present Illness: 87 y/o F recently moved to [facility] from [place] H/O HTN, CHF, High Cholesterol, Dementia , BIB family with an episode of agitation, patient was very agitated and was contacted over the weekend by answering service. Spoke to daughter and advised to bring to ER where he c/o chest pain admitted for further evaluation, patient is unable to provide much information, as per family patient has H/O Dementia and agittaion in the past but this episode was more intense, no documented fever, chills, nausea, vomiting, diarrhea head traum, in ED EKG unremarkale, CBC , BMP , Trop all normal. There is concern of his ability to care for self and daughter reported he has been progressively worsening. CT head completed and did not show acute changes. Patient well appearing this morning, calm, cooperative and conversing. Aide at bedside, no acute events this AM. Spoke to hospitalist in detail, patient observation status would not be for placement. Active Medications Carvedilol (Coreg -) 3.125 mg PO BID [facility] Last Admin: 08/27/17 21:26 Dose: Not Given Cyanocobalamin (Vitamin B12 -) 1,000 mcg PO DAILY [facility] Last Admin: 08/27/17 10:39 Dose: 1,000 mcg Digoxin (Lanoxin -) 0.125 mg PO DAILY [facility] Last Admin: 08/27/17 10:40 Dose: 0.125 mg Enoxaparin Sodium (Lovenox -) 40 mg SQ DAILY [facility] Last Admin: 08/27/17 10:40 Dose: 40 mg Lorazepam (Ativan Injection -) 0.5 mg IM Q8H PRN PRN Reason: AGITATION Last Admin: 08/27/17 13:56 Dose: 0.5 mg Losartan Potassium (Cozaar -) 50 mg PO DAILY [facility] Last Admin: 08/27/17 10:40 Dose: 50 mg Multivitamins/Minerals/Vitamin C (Tab-A-Vit -) 1 tab PO DAILY [facility] Last Admin: 08/27/17 10:39 Dose: 1 tab Pantoprazole Sodium (Protonix -) 20 mg PO DAILY [facility] Last Admin: 08/27/17 10:40 Dose: 20 mg Quetiapine Fumarate (Seroquel -) 100 mg PO DAILY [facility] Last Admin: 08/27/17 10:39 Dose: 100 mg Torsemide (Demadex -) 20 mg PO Q2D [facility] Last Admin: 08/27/17 10:39 Dose: 20 mg Physical Examination Vital Signs: Vital Signs Period Temp Pulse Resp BP Sys/Carranza Pulse Ox Last 24 Hr 97.5 F-98.3 F 88-148 16-20 101-133/60-96 98 Constitutional: Yes: Well Nourished, No Distress, Other (agitated) Eyes: Yes: Conjunctiva Clear, EOM Intact HENT: Yes: WNL, Atraumatic, Normocephalic Neck: Yes: WNL, Supple, Trachea Midline Cardiovascular: Yes: Regular Rate and Rhythm, Pulse Irregular, Murmur. No: Bruit, JVD Respiratory: Yes: Regular, CTA Bilaterally Gastrointestinal: Yes: WNL, Normal Bowel Sounds, Soft Musculoskeletal: Yes: WNL. No: Back Pain Extremities: Yes: WNL. No: Calf Tenderness Edema: LLE: 1+, RLE: 1+ Peripheral Pulses: Left Doralis Pedis: 1+, Right Dorsalis Pedis: 1+ Neurological: CN intact, strength equal, b/l, sensory normal, finger to nose intact CBCD WBC 8.3 K/mm3 (4.0-10.0) 08/28/17 05:35 RBC 4.83 M/mm3 (3.60-5.2) 08/28/17 05:35 Hgb 14.0 GM/dL (10.7-15.3) 08/28/17 05:35 Hct 42.5 % (32.4-45.2) 08/28/17 05:35 MCV 87.9 fl (80-96) 08/28/17 05:35 MCHC 33.1 g/dl (32.0-36.0) 08/28/17 05:35 RDW 13.8 % (11.6-15.6) 08/28/17 05:35 Plt Count 183 K/MM3 (134-434) 08/28/17 05:35 MPV 8.2 fl (7.5-11.1) 08/28/17 05:35 CMP Sodium 141 mmol/L (136-145) 08/28/17 05:35 Potassium 3.1 mmol/L (3.5-5.1) L 08/28/17 05:35 Chloride 97 mmol/L (98-107) L 08/28/17 05:35 Carbon Dioxide 31 mmol/L (21-32) 08/28/17 05:35 Anion Gap 13 (8-16) 08/28/17 05:35 BUN 18 mg/dL (7-18) 08/28/17 05:35 Creatinine 0.8 mg/dL (0.55-1.02) D 08/28/17 05:35 Creat Clearance w eGFR > 60 (>60) 08/26/17 05:35 Calcium 8.5 mg/dL (8.5-10.1) 08/28/17 05:35 Total Bilirubin 1.0 mg/dL (0.2-1.0) D 08/26/17 05:35 AST 19 U/L (15-37) 08/26/17 05:35 ALT 19 U/L (12-78) 08/26/17 05:35 Alkaline Phosphatase 102 U/L (45-117) 08/26/17 05:35 Total Protein 6.9 g/dl (6.4-8.2) 08/26/17 05:35 Albumin 4.0 g/dl (3.4-5.0) 08/26/17 05:[address] head reviewed Plan 87 y/o F recently moved to [facility] from [place] H/O HTN, CHF, High Cholesterol, Dementia , BIB family with an episode of agitation, patient was very agitated and was contacted over the weekend by answering service. Spoke to daughter and advised to bring to ER where he c/o chest pain admitted for further evaluation, patient is unable to provide much information, as per family patient has H/O Dementia and agittaion in the past but this episode was more intense, no documented fever, chills, nausea, vomiting, diarrhea head traum, in ED EKG unremarkale, CBC , BMP , Trop all normal. There is concern of his ability to care for self and daughter reported he has been progressively worsening. CT head completed and did not show acute changes. Seroquel being continued. Would not be placed as observation status Monitor blood pressure Goal range < 140/90 Continue Statin for HLD Fall precautions Doing well this AM Maintain IV/PO hydration Frequent reorientation
[2017-08-28] MEDS ORDERED: QUEtiapine FUMARATE 50 MG TABLET ONE (10:01)
[2017-08-28] MEDS: PANTOPRAZOLE 20 MG TABLET (FP) PO SCH (10:02)
[2017-08-28] MEDS: CYANOCOBALAMIN 1,000 MCG TABLET (FP) PO SCH (10:02)
[2017-08-28] MEDS: QUEtiapine FUMARATE 100 MG TABLET (FP) PO SCH (10:02)
[2017-08-28] MEDS: MULTIVITAMINS (DAILY MVI) TABLET (FP) PO SCH (10:02)
[2017-08-28] MEDS: DIGOXIN 0.125 MG TABLET (FP) PO SCH (10:03)
[2017-08-28] MEDS: CARVEDILOL 3.125 MG TABLET (FP) PO SCH ×2 (10:03→21:09)
[2017-08-28] MEDS: ENOXAPARIN NA (PORCINE) 40 MG/0.4 ML DISP.SYRIN SQ SCH (10:03)
--- NOTE | 2017-08-28 10:56 | PN ---
Progress Note (short form) - Note Progress Note: Chief Complaint: abd pain, ? cp History of Present Illness: echo yesterday with severe AR and dilation of the ascending aorta. CTA ordered but patient too agitated to send down. U/s of the aorta ordered instead. By evening patient calm enough to send down for CTA, prelim results below. BP trending down. Also with conversion to afib overnight. RVR to 160's this am. Patient asx. Denies recurrence of cp. Denies palps, dizziness, sob. patient had been living at home prior to this admit. per niece, daughter is hcp. Current Medications Carvedilol (Coreg -) 3.125 mg PO BID [facility] Last Admin: 08/28/17 10:03 Dose: 3.125 mg Cyanocobalamin (Vitamin B12 -) 1,000 mcg PO DAILY [facility] Last Admin: 08/28/17 10:02 Dose: 1,000 mcg Digoxin (Lanoxin -) 0.125 mg PO DAILY [facility] Last Admin: 08/28/17 10:03 Dose: 0.125 mg Enoxaparin Sodium (Lovenox -) 40 mg SQ DAILY [facility] Last Admin: 08/28/17 10:03 Dose: 40 mg Lorazepam (Ativan Injection -) 0.5 mg IM Q8H PRN PRN Reason: AGITATION Last Admin: 08/27/17 13:56 Dose: 0.5 mg Losartan Potassium (Cozaar -) 50 mg PO DAILY [facility] Last Admin: 08/27/17 10:40 Dose: 50 mg Multivitamins/Minerals/Vitamin C (Tab-A-Vit -) 1 tab PO DAILY [facility] Last Admin: 08/28/17 10:02 Dose: 1 tab Pantoprazole Sodium (Protonix -) 20 mg PO DAILY [facility] Last Admin: 08/28/17 10:02 Dose: 20 mg Quetiapine Fumarate (Seroquel -) 100 mg PO DAILY [facility] Last Admin: 08/28/17 10:02 Dose: 100 mg Torsemide (Demadex -) 20 mg PO Q2D [facility] Last Admin: 08/27/17 10:39 Dose: 20 mg Vital Signs - 24 hr 08/27/17 08/27/17 08/27/17 18:00 18:30 18:35 Temperature 97.5 F L Pulse Rate 105 H 97 H 114 H Respiratory 16 Rate Blood Pressure 120/70 128/69 119/96 O2 Sat by Pulse Oximetry (%) 08/27/17 08/27/17 08/27/17 18:40 18:45 21:00 Temperature Pulse Rate 115 H 114 H Respiratory Rate Blood Pressure 127/62 132/70 O2 Sat by Pulse 98 Oximetry (%) 08/27/17 08/28/17 08/28/17 23:00 02:00 06:00 Temperature 97.5 F L 98.2 F 98.3 F Pulse Rate 148 H 88 94 H Respiratory 20 20 20 Rate Blood Pressure 114/60 104/61 124/73 O2 Sat by Pulse Oximetry (%) 08/28/17 08/28/17 08:20 10:03 Temperature 98.2 F Pulse Rate 90 120 H Respiratory 16 Rate Blood Pressure 108/84 O2 Sat by Pulse Oximetry (%) Intake & Output 08/26/17 08/27/17 08/28/17 08/29/17 07:59 07:59 07:59 07:59 Intake Total 20 170 Balance 20 170 Weight 128 lb 8 oz Constitutional: Yes: Well Nourished, No Distress, Calm jvd flat, neck supple Cardiovascular: Yes: Irregular Rate and Rhythm, tachycardic, Murmur (1/6 SUNNY rusb), S1, S2. No: Gallop. non-displace pmi Respiratory: Yes: regular, CTA Bilaterally (anteriorly (yandel vest on)). No: Accessory Muscle Use, Rales, Wheezes + bs soft nt nd, no hsm Extremities: No: Cold, no cyanosis or clubbing. Edema: No Neurological: Yes: Alert. not oriented. No: Seizure Psychiatric: No: Agitated diminished dp/pt no jaundice, diaphoresis Labs: CBC, BMP 08/28/17 05:35 08/28/17 05:35 - ....Imaging EKG: Other (tele: sr/stach, conversion to afib with intermittent rvr to 160's) echo 08/2017: nl lv/rv. 1+ as (MG 7 mmHg), Severe AR. 1+ mac/mr. mild root dilation. + dilation of asc aorta (5.0 cm). Aorta u/s 08/2017: distal abd aorta 2.7 cm with thrombus (thrombus vs. thrombosed dissection) --> rec cta CTA 08/2017 prelim report: densely calc cors. 6.0 x 5.6 cm asc aorta aneurysm without dissection. 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 Pala aorta normal enhancement with some atherosclerotic change. Assessment/Plan 87 yo female with HTN, admitted with mental status changes and agitation and reported chest pain prior to ER. Chest pain -Pain on history is more epigastric/flank,though confounded by pt dementia -ECG without ischemic changes and enzymes negative x 3 (4.5 hrs apart) -08/28 Now noted to have severe AR, ascending aorta aneurysm and new onset afib , all which may be contributing to sx's. See plan below. severe AR - symptomatic with CP. Does not appear decompensated. Would maintain elevated HR (90's-110's) to limit time in diastole and prevent decompensation. - Patient has surgical indication, goals of care need to be clarified. ascending aortic aneurysm - CTA with 6.0 x 5.6 cm. No evidence of dissection. Patient has indication for surgical evaluation, but likely poor candidate due to co-morbidities/ dementia. Goals of care need to be clarified. afib. - patient on digoxin as outpatient but did not carry diagnosis of afib, ? new onset. - con't dig, coreg. (dig level OK 08/27). Would NOT try to aggressively rate control b/c of severe AR. ( maintain HR's 90's -110's). Can give PRN IV metoprolol for HR's consistently > 130. - will start with short acting anticoagulation (lovenox) until overall plan for her care is clarified. - lyte repletion prn. 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 HTN - In setting of asc aneursym/severe ar, goal sys bp < 130, but currently running on low end (100's-110's). Will hold losartan. Con't coreg with lenient rate control goals as above. agitation/MS change: -neuro note appreciated -CT head neg GOC: - discussed with pmd --> contacted daughter, patient is full code and daughter would opt for surgery if patient is a candidate. Likely high risk for surgery, will need csurg evaluation to see if she is a surgical candidate. Plan for transfer. multiple new diagnoses of high morbidity requiring coordinated care. > 30 min.
[2017-08-28] MEDS ORDERED: METOPROLOL TARTRATE 5 MG/5 ML VIAL ONE (11:06)
[2017-08-28] MEDS: LOSARTAN POTASSIUM 25 MG TABLET PO SCH (11:08)
[2017-08-28] MEDS ORDERED: POTASSIUM CHLORIDE TABS 20 MEQ TABLET.ER (FP) PO ONE ×2 (11:21→14:00)
--- NOTE | 2017-08-28 11:58 | PN ---
Progress Note, Physician Chief Complaint: Patient says she feels confused. Denies cp, sob, n/v. - Current Medication List Current Medications: Active Medications Carvedilol (Coreg -) 3.125 mg PO BID [facility] Last Admin: 08/28/17 10:03 Dose: 3.125 mg Cyanocobalamin (Vitamin B12 -) 1,000 mcg PO DAILY [facility] Last Admin: 08/28/17 10:02 Dose: 1,000 mcg Digoxin (Lanoxin -) 0.125 mg PO DAILY [facility] Last Admin: 08/28/17 10:03 Dose: 0.125 mg Enoxaparin Sodium (Lovenox -) 60 mg SQ Q12H [facility] Lorazepam (Ativan Injection -) 0.5 mg IM Q8H PRN PRN Reason: AGITATION Last Admin: 08/27/17 13:56 Dose: 0.5 mg Multivitamins/Minerals/Vitamin C (Tab-A-Vit -) 1 tab PO DAILY [facility] Last Admin: 08/28/17 10:02 Dose: 1 tab Pantoprazole Sodium (Protonix -) 20 mg PO DAILY [facility] Last Admin: 08/28/17 10:02 Dose: 20 mg Potassium Chloride (K-Dur -) 40 meq PO ONCE ONE Stop: 08/28/17 14:01 Quetiapine Fumarate (Seroquel -) 100 mg PO DAILY [facility] Last Admin: 08/28/17 10:02 Dose: 100 mg Torsemide (Demadex -) 20 mg PO Q2D [facility] Last Admin: 08/27/17 10:39 Dose: 20 mg - Objective Vital Signs: Vital Signs Temperature 36.8 C 08/28/17 08:20 Pulse Rate 110 H 08/28/17 11:21 Respiratory Rate 16 08/28/17 11:21 Blood Pressure 110/68 08/28/17 11:21 O2 Sat by Pulse Oximetry (%) 98 08/27/17 21:00 Constitutional: Yes: Well Nourished, No Distress, Calm Cardiovascular: Yes: Tachycardia, Pulse Irregular. No: Gallop, Murmur, Rub Respiratory: Yes: Regular, CTA Bilaterally. No: Rales, Rhonchi, Wheezes Gastrointestinal: Yes: Normal Bowel Sounds, Soft. No: Distention, Tenderness Extremities: Yes: WNL Edema: No Problem List - Problems (1) Altered mental status Code(s): R41.82 - ALTERED MENTAL STATUS, UNSPECIFIED (2) Chest pain Code(s): R07.9 - CHEST PAIN, UNSPECIFIED Qualifiers: Chest pain type: unspecified Qualified Code(s): R07.9 - Chest pain, unspecified; R07.9 - Chest pain, unspecified (3) Dementia Code(s): F03.90 - UNSPECIFIED DEMENTIA WITHOUT BEHAVIORAL DISTURBANCE (4) HTN (hypertension) Code(s): I10 - ESSENTIAL (PRIMARY) HYPERTENSION (5) Atrial fibrillation with rapid ventricular response Code(s): I48.91 - UNSPECIFIED ATRIAL FIBRILLATION Assessment/Plan (1) Altered mental status Assessment/Plan: -appreciate neurology assistance -continue seroquel Code(s): R41.82 - ALTERED MENTAL STATUS, UNSPECIFIED (2) Chest pain Assessment/Plan: -currently chest pain free -appreciate cardiology assistance Code(s): R07.9 - CHEST PAIN, UNSPECIFIED Qualifiers: Chest pain type: unspecified Qualified Code(s): R07.9 - Chest pain, unspecified; R07.9 - Chest pain, unspecified (3) Dementia Assessment/Plan: -continue seroquel -neurology following Code(s): F03.90 - UNSPECIFIED DEMENTIA WITHOUT BEHAVIORAL DISTURBANCE (4) HTN (hypertension) Assessment/Plan: -controlled -continue coreg, torsemide, and cozaar Code(s): I10 - ESSENTIAL (PRIMARY) HYPERTENSION (5) Afib with RVR -now has afib with rvr -placed on lovenox -continue coreg and digoxin -monitor (6) Thoracic aortic aneurysm -case d/w daughter who is HCP, wants transfer to [facility] for surgical intervention -case d/w [facility], states patient does not sound like a surgical candidate -transfer denied -will d/w family, ? CT surgery consult here for further evaluation -palliative care consulted
--- NOTE | 2017-08-28 18:46 | EKG ---
Test Reason : Blood Pressure : / mmHG Vent. Rate : 073 BPM Atrial Rate : 073 BPM P-R Int : 178 ms QRS Dur : 096 ms QT Int : 362 ms P-R-T Axes : -08 -27 016 degrees QTc Int : 398 ms BASELINE ARTIFACT SINUS RHYTHM LEFT VENTRICULAR HYPERTROPHY WITH REPOLARIZATION ABNORMALITY LEFT AXIS DEVIATION ABNORMAL ECG NO PREVIOUS ECGS AVAILABLE RECOMMEND FOLLOW UP EKG Confirmed by LI BEST MD ([id number] on 08/28/2017 6:45:52 PM Referred By: Confirmed By:LI BEST MD
[2017-08-28] MEDS ORDERED: METOPROLOL TARTRATE 5 MG/5 ML VIAL IVPUSH PRN (19:48)
--- NOTE | 2017-08-28 20:14 | EKG ---
Test Reason : Blood Pressure : / mmHG Vent. Rate : 132 BPM Atrial Rate : 153 BPM P-R Int : 000 ms QRS Dur : 092 ms QT Int : 260 ms P-R-T Axes : 000 -27 155 degrees QTc Int : 385 ms ATRIAL FIBRILLATION WITH RAPID VENTRICULAR RESPONSE VOLTAGE CRITERIA FOR LEFT VENTRICULAR HYPERTROPHY MARKED ST ABNORMALITY, POSSIBLE LATERAL SUBENDOCARDIAL INJURY ABNORMAL ECG WHEN COMPARED WITH ECG OF 26-AUG-2017 09:57, ATRIAL FIBRILLATION HAS REPLACED SINUS RHYTHM VENT. RATE HAS INCREASED BY [address] MORE DEPRESSED LATERAL LEADS T WAVE INVERSION NO LONGER EVIDENT IN INFERIOR LEADS T WAVE INVERSION NOW EVIDENT IN LATERAL LEADS FOLLOW EKG IS RECOMMENDED Confirmed by LI BEST MD ([id number]) on 08/28/2017 8:14:29 PM Referred By: HAN DAWSON Confirmed By:LI BEST MD
[2017-08-28] MEDS: ENOXAPARIN NA (PORCINE) 60 MG/0.6 ML DISP.SYRIN SQ SCH (21:07)
[2017-08-29 06:58] LABS: BASOPHIL 1.1 % (0-2.0); EOSINOPHIL 4.9 % (0-4.5); MCH 29.4 pg (25.7-33.7); MCHC 33.3 g/dl (32.0-36.0); MEAN CELL VOLUME 88.2 fl (80-96); MEAN PLT VOLUME 8.1 fl (7.5-11.1); NEUTROPHILS 50.5 % (42.8-82.8); PLATELET COUNT 161 K/MM3 (134-434); RDW 14.3 % (11.6-15.6); WHITE BLOOD COUNT 7.7 K/mm3 (4.0-10.0)
[2017-08-29 07:39] LABS: ANION GAP 7 (8-16); CALCIUM 8.4 mg/dL (8.5-10.1); CO2 30 mmol/L (21-32); CREATININE 0.7 mg/dL (0.55-1.02); GLUCOSE,RANDOM 110 mg/dL (74-106); MAGNESIUM 2.1 mg/dL (1.8-2.4); PHOSPHOROUS 3.7 mg/dL (2.5-4.9)
[2017-08-29] MEDS ORDERED: QUEtiapine FUMARATE 50 MG TABLET ONE (09:28)
--- NOTE | 2017-08-29 10:05 | PN ---
Progress Note (short form) - Note Progress Note: Neurology History of Present Illness: 87 y/o F recently moved to [facility] from [place] H/O HTN, CHF, High Cholesterol, Dementia , BIB family with an episode of agitation, patient was very agitated and was contacted over the weekend by answering service. Spoke to daughter and advised to bring to ER where he c/o chest pain admitted for further evaluation, patient is unable to provide much information, as per family patient has H/O Dementia and agittaion in the past but this episode was more intense, no documented fever, chills, nausea, vomiting, diarrhea head traum, in ED EKG unremarkale, CBC , BMP , Trop all normal. There is concern of his ability to care for self and daughter reported he has been progressively worsening. CT head completed and did not show acute changes. Patient well appearing this morning, calm, cooperative and conversing. Aide at bedside, no acute events this AM. Echo completed and with normal LV function, reviewed cardiology note. Abd aorta with ?thrombus on CT, CT aortogram mentioned, will defer to primary. Active Medications Carvedilol (Coreg -) 3.125 mg PO BID [facility] Last Admin: 08/28/17 21:09 Dose: 3.125 mg Cyanocobalamin (Vitamin B12 -) 1,000 mcg PO DAILY [facility] Last Admin: 08/28/17 10:02 Dose: 1,000 mcg Digoxin (Lanoxin -) 0.125 mg PO DAILY [facility] Last Admin: 08/28/17 10:03 Dose: 0.125 mg Enoxaparin Sodium (Lovenox -) 60 mg SQ Q12H [facility] Last Admin: 08/28/17 21:07 Dose: 60 mg Lorazepam (Ativan Injection -) 0.5 mg IM Q8H PRN PRN Reason: AGITATION Last Admin: 08/27/17 13:56 Dose: 0.5 mg Metoprolol Tartrate (Lopressor Injection -) 2.5 mg IVPUSH Q4H PRN PRN Reason: TACHYCARDIA Multivitamins/Minerals/Vitamin C (Tab-A-Vit -) 1 tab PO DAILY [facility] Last Admin: 08/28/17 10:02 Dose: 1 tab Pantoprazole Sodium (Protonix -) 20 mg PO DAILY [facility] Last Admin: 08/28/17 10:02 Dose: 20 mg Quetiapine Fumarate (Seroquel -) 100 mg PO DAILY [facility] Last Admin: 08/28/17 10:02 Dose: 100 mg Torsemide (Demadex -) 20 mg PO Q2D [facility] Last Admin: 08/27/17 10:39 Dose: 20 mg Physical Examination Vital Signs: Vital Signs Period Temp Pulse Resp BP Sys/C[place]anza Pulse Ox Last 24 Hr 97.4 F-98.2 F 72-160 14-20 106-150/51-79 94 Constitutional: Yes: Well Nourished, No Distress, Other (agitated) Eyes: Yes: Conjunctiva Clear, EOM Intact HENT: Yes: WNL, Atraumatic, Normocephalic Neck: Yes: WNL, Supple, Trachea Midline Cardiovascular: Yes: Regular Rate and Rhythm, Pulse Irregular, Murmur. No: Bruit, JVD Respiratory: Yes: Regular, CTA Bilaterally Gastrointestinal: Yes: WNL, Normal Bowel Sounds, Soft Musculoskeletal: Yes: WNL. No: Back Pain Extremities: Yes: WNL. No: Calf Tenderness Edema: LLE: 1+, RLE: 1+ Peripheral Pulses: Left Doralis Pedis: 1+, Right Dorsalis Pedis: 1+ Neurological: CN intact, strength equal, b/l, sensory normal, finger to nose intact CBCD WBC 7.7 K/mm3 (4.0-10.0) 08/29/17 06:40 RBC 4.67 M/mm3 (3.60-5.2) 08/29/17 06:40 Hgb 13.7 GM/dL (10.7-15.3) 08/29/17 06:40 Hct 41.2 % (32.4-45.2) 08/29/17 06:40 MCV 88.2 fl (80-96) 08/29/17 06:40 MCHC 33.3 g/dl (32.0-36.0) 08/29/17 06:40 RDW 14.3 % (11.6-15.6) 08/29/17 06:40 Plt Count 161 K/MM3 (134-434) 08/29/17 06:40 MPV 8.1 fl (7.5-11.1) 08/29/17 06:40 CMP Sodium 140 mmol/L (136-145) 08/29/17 06:40 Potassium 4.2 mmol/L (3.5-5.1) D 08/29/17 06:40 Chloride 103 mmol/L (98-107) 08/29/17 06:40 Carbon Dioxide 30 mmol/L (21-32) 08/29/17 06:40 Anion Gap 7 (8-16) L 08/29/17 06:40 BUN 23 mg/dL (7-18) H D 08/29/17 06:40 Creatinine 0.7 mg/dL (0.55-1.02) 08/29/17 06:40 Creat Clearance w eGFR > 60 (>60) 08/26/17 05:35 Calcium 8.4 mg/dL (8.5-10.1) L 08/29/17 06:40 Total Bilirubin 1.0 mg/dL (0.2-1.0) D 08/26/17 05:35 AST 19 U/L (15-37) 08/26/17 05:35 ALT 19 U/L (12-78) 08/26/17 05:35 Alkaline Phosphatase 102 U/L (45-117) 08/26/17 05:35 Total Protein 6.9 g/dl (6.4-8.2) 08/26/17 05:35 Albumin 4.0 g/dl (3.4-5.0) 08/26/17 05:[address] head reviewed Echo reviewed CT Abd reviewed Plan 87 y/o F recently moved to [facility] [place] H/O HTN, CHF, High Cholesterol, Dementia , BIB family with an episode of agitation, patient was very agitated and was contacted over the weekend by answering service. Spoke to daughter and advised to bring to ER where he c/o chest pain admitted for further evaluation, patient is unable to provide much information, as per family patient has H/O Dementia and agittaion in the past but this episode was more intense, no documented fever, chills, nausea, vomiting, diarrhea head traum, in ED EKG unremarkale, CBC , BMP , Trop all normal. There is concern of his ability to care for self and daughter reported he has been progressively worsening. CT head completed and did not show acute changes. Echo with normal LV function and EF CT aortogram recommneded, will defer to PCP Seroquel being continued. Would not be placed as observation status Monitor blood pressure Goal range < 140/90 Continue Statin for HLD Fall precautions Doing well this AM Maintain IV/PO hydration Frequent reorientation
[2017-08-29] MEDS: ENOXAPARIN NA (PORCINE) 60 MG/0.6 ML DISP.SYRIN SQ SCH ×2 (10:18→22:14)
[2017-08-29] MEDS: QUEtiapine FUMARATE 100 MG TABLET (FP) PO SCH (10:19)
[2017-08-29] MEDS: TORSEMIDE 20 MG TABLET (FP) PO SCH (10:19)
[2017-08-29] MEDS: PANTOPRAZOLE 20 MG TABLET (FP) PO SCH (10:19)
[2017-08-29] MEDS: CYANOCOBALAMIN 1,000 MCG TABLET (FP) PO SCH (10:19)
[2017-08-29] MEDS: DIGOXIN 0.125 MG TABLET (FP) PO SCH (10:19)
[2017-08-29] MEDS: MULTIVITAMINS (DAILY MVI) TABLET (FP) PO SCH (10:19)
[2017-08-29] MEDS: CARVEDILOL 3.125 MG TABLET (FP) PO SCH ×2 (10:19→22:14)
[2017-08-29 10:20] LABS: HEMATOCRIT 39.9 % (34.0-46.6)
--- NOTE | 2017-08-29 11:03 | PN ---
Progress Note (short form) - Note Progress Note: cc: AR, afib, aortic aneurysm s: denies cp sob palps dizzy, no overnight events no cigs Current Medications Generic Name Dose Route Start Last Admin Trade Name Freq PRN Reason Stop Dose Admin Carvedilol 3.125 mg 08/25/17 22:00 08/29/17 10:19 Coreg - PO 3.125 mg BID [facility] Administration Cyanocobalamin 1,000 mcg 08/26/17 10:00 08/29/17 10:19 Vitamin B12 - PO 1,000 mcg DAILY [facility] Administration Digoxin 0.125 mg 08/26/17 10:00 08/29/17 10:19 Lanoxin - PO 0.125 mg DAILY [facility] Administration Enoxaparin Sodium 60 mg 08/28/17 22:00 08/29/17 10:18 Lovenox - SQ 60 mg Q12H [facility] Administration Lorazepam 0.5 mg 08/26/17 05:43 08/27/17 13:56 Ativan Injection - IM 0.5 mg Q8H PRN Administration AGITATION Metoprolol Tartrate 2.5 mg 08/28/17 19:48 08/28/17 11:05 Lopressor Injection - IVPUSH 2.5 mg Q4H PRN Administration TACHYCARDIA Multivitamins/Minerals/Vitamin C 1 tab 08/26/17 10:00 08/29/17 10:19 Tab-A-Vit - PO 1 tab DAILY [facility] Administration Pantoprazole Sodium 20 mg 08/26/17 10:00 08/29/17 10:19 Protonix - PO 20 mg DAILY [facility] Administration Quetiapine Fumarate 100 mg 08/26/17 10:00 08/29/17 10:19 Seroquel - PO 100 mg DAILY [facility] Administration Torsemide 20 mg 08/27/17 10:00 08/29/17 10:19 Demadex - PO 20 mg Q2D [facility] Administration Vital Signs Temp 98.2 F 08/29/17 08:10 Pulse 88 08/29/17 10:19 Resp 14 08/29/17 08:10 BP 150/70 08/29/17 08:10 Pulse Ox 94 L 08/28/17 20:21 Intake & Output 08/28/17 08/28/17 08/29/17 11:59 23:59 11:59 Intake Total 340 Balance 340 Intake: Oral 340 Other: Voiding Method Bedside Commode Bedside Commode # Unmeasured Voids Void 2 2 Constitutional: Yes: Well Nourished, No Distress, Calm jvd flat, neck supple Cardiovascular: Yes:rrr Murmur (1/6 SUNNY rusb), S1, S2. No: Gallop. non- displace pmi Respiratory: Yes: regular, CTA Bilaterally No: Accessory Muscle Use, Rales, Wheezes + bs soft nt nd, no hsm Extremities: No: Cold, no cyanosis or clubbing. Edema: No Neurological: Yes: Alert. not oriented. No: Seizure Psychiatric: No: Agitated + dp/pt no jaundice, diaphoresis Labs: Laboratory Last Values WBC 7.7 K/mm3 (4.0-10.0) 08/29/17 06:40 RBC 4.67 M/mm3 (3.60-5.2) 08/29/17 06:40 Hgb 13.7 GM/dL (10.7-15.3) 08/29/17 06:40 Hct 41.2 % (32.4-45.2) 08/29/17 06:40 MCV 88.2 fl (80-96) 08/29/17 06:40 MCH 29.4 pg (25.7-33.7) 08/29/17 06:40 MCHC 33.3 g/dl (32.0-36.0) 08/29/17 06:40 RDW 14.3 % (11.6-15.6) 08/29/17 06:40 Plt Count 161 K/MM3 (134-434) 08/29/17 06:40 MPV 8.1 fl (7.5-11.1) 08/29/17 06:40 Neutrophils % 50.5 % (42.8-82.8) 08/29/17 06:40 Lymphocytes % 34.8 % (8-40) D 08/29/17 06:40 Monocytes % 8.7 % (3.8-10.2) 08/29/17 06:40 Eosinophils % 4.9 % (0-4.5) H 08/29/17 06:40 Basophils % 1.1 % (0-2.0) 08/29/17 06:40 Sodium 140 mmol/L (136-145) 08/29/17 06:40 Potassium 4.2 mmol/L (3.5-5.1) D 08/29/17 06:40 Chloride 103 mmol/L (98-107) 08/29/17 06:40 Carbon Dioxide 30 mmol/L (21-32) 08/29/17 06:40 Anion Gap 7 (8-16) L 08/29/17 06:40 BUN 23 mg/dL (7-18) H D 08/29/17 06:40 Creatinine 0.7 mg/dL (0.55-1.02) 08/29/17 06:40 Creat Clearance w eGFR > 60 (>60) 08/26/17 05:35 Random Glucose 110 mg/dL (74-106) H 08/29/17 06:40 Hemoglobin A1c % 6.5 % (4.8-6.0) H 08/26/17 05:35 Calcium 8.4 mg/dL (8.5-10.1) L 08/29/17 06:40 Phosphorus 3.7 mg/dL (2.5-4.9) D 08/29/17 06:40 Magnesium 2.1 mg/dL (1.8-2.4) 08/29/17 06:40 Total Bilirubin 1.0 mg/dL (0.2-1.0) D 08/26/17 05:35 AST 19 U/L (15-37) 08/26/17 05:35 ALT 19 U/L (12-78) 08/26/17 05:35 Alkaline Phosphatase 102 U/L (45-117) 08/26/17 05:35 Creatine Kinase 97 IU/L (26-192) 08/27/17 06:25 Troponin I < 0.02 ng/ml (0.00-0.05) 08/27/17 06:25 Total Protein 6.9 g/dl (6.4-8.2) 08/26/17 05:35 Albumin 4.0 g/dl (3.4-5.0) 08/26/17 05:35 Triglycerides 184 mg/dL (35-160) H 08/25/17 19:00 Cholesterol 131 mg/dL (50-200) 08/25/17 19:00 Total LDL Cholesterol 65 mg/dL (5-100) 08/25/17 19:00 HDL Cholesterol 47 mg/dL (40-60) 08/25/17 19:00 Lipase 95 U/L (73-393) 08/25/17 14:36 Vitamin B12 1482 pg/ml (180-914) H 08/26/17 05:35 Folate >1554 ng/mL (>498) 08/27/17 06:25 Folate Hemolysate >620.0 ng/mL (Not Estab.) 08/27/17 06:25 TSH 12.50 uIU/ml (0.358-3.74) H 08/27/17 06:25 Urine Color Yellow 08/25/17 14:10 Urine Appearance Clear 08/25/17 14:10 Urine pH 6.0 (5.0-8.0) 08/25/17 14:10 Ur Specific [place] 1.015 (1.005-1.025) 08/25/17 14:10 Urine Protein Negative (NEGATIVE) 08/25/17 14:10 Urine Glucose (UA) Negative (NEGATIVE) 08/25/17 14:10 Urine Ketones Negative (NEGATIVE) 08/25/17 14:10 Urine Blood Negative (NEGATIVE) 08/25/17 14:10 Urine Nitrite Negative (NEGATIVE) 08/25/17 14:10 Urine Bilirubin Negative (NEGATIVE) 08/25/17 14:10 Urine Urobilinogen Negative mg/dL (0.2-1.0) 08/25/17 14:10 Ur Leukocyte Esterase Negative (NEGATIVE) 08/25/17 14:10 Digoxin 0.9479 ng/ml (0.8-2.0) 08/27/17 06:25 tele: sr, pacs echo 08/2017: nl lv/rv. 1+ as (MG 7 mmHg), Severe AR. 1+ mac/mr. mild root dilation. + dilation of asc aorta (5.0 cm). Aorta u/s 08/2017: distal abd aorta 2.7 cm with thrombus (thrombus vs. thrombosed dissection) --> rec cta CTA 08/2017 prelim report: densely calc cors. 6.0 x 5.6 cm asc aorta aneurysm without dissection. 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 [place] aorta normal enhancement with some atherosclerotic change. Assessment/Plan 87 yo female with HTN, admitted with mental status changes and agitation and reported chest pain prior to ER. Chest pain -Pain on history is more epigastric/flank,though confounded by pt dementia -ECG without ischemic changes and enzymes negative x 3 (4.5 hrs apart) -Now noted to have severe AR, ascending aorta aneurysm and new onset afib, all which may be contributing to sx's. See plan below. ascending aortic aneurysm - CTA with 6.0 x 5.6 cm. No evidence of dissection. Patient has indication for surgical evaluation, but likely poor candidate due to co-morbidities/ dementia. This was d/w ct surgery at [facility] and transfer was denied as she was deemed not at candidate for surgery. Goals of care need to be clarified with family. severe AR - symptomatic with CP. Does not appear decompensated. Would maintain elevated HR (90's-110's) to limit time in diastole and prevent decompensation. - Patient has surgical indication, goals of care need to be clarified. afib. - patient on digoxin as outpatient but did not carry diagnosis of afib, ? new onset. - con't dig, coreg. (dig level OK 08/27). Would NOT try to aggressively rate control b/c of severe AR. ( maintain HR's 90's -110's). Can give PRN IV metoprolol for HR's consistently > 130. - will start with short acting anticoagulation (lovenox) until overall plan for her care is clarified. - lyte repletion prn. 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 HTN - In setting of asc aneursym/severe ar, goal sys bp < 130, but currently running on low end (100's-110's). Will hold losartan. Con't coreg with lenient rate control goals as above. agitation/MS change: -neuro note appreciated -CT head neg
--- NOTE | 2017-08-29 12:20 | PN ---
Progress Note, Physician Chief Complaint: Patient is without complaint. Denies cp, sob, n/v. - Current Medication List Current Medications: Active Medications Carvedilol (Coreg -) 3.125 mg PO BID [facility] Last Admin: 08/29/17 10:19 Dose: 3.125 mg Cyanocobalamin (Vitamin B12 -) 1,000 mcg PO DAILY [facility] Last Admin: 08/29/17 10:19 Dose: 1,000 mcg Digoxin (Lanoxin -) 0.125 mg PO DAILY [facility] Last Admin: 08/29/17 10:19 Dose: 0.125 mg Enoxaparin Sodium (Lovenox -) 60 mg SQ Q12H [facility] Last Admin: 08/29/17 10:18 Dose: 60 mg Lorazepam (Ativan Injection -) 0.5 mg IM Q8H PRN PRN Reason: AGITATION Last Admin: 08/27/17 13:56 Dose: 0.5 mg Metoprolol Tartrate (Lopressor Injection -) 2.5 mg IVPUSH Q4H PRN PRN Reason: TACHYCARDIA Last Admin: 08/28/17 11:05 Dose: 2.5 mg Multivitamins/Minerals/Vitamin C (Tab-A-Vit -) 1 tab PO DAILY [facility] Last Admin: 08/29/17 10:19 Dose: 1 tab Pantoprazole Sodium (Protonix -) 20 mg PO DAILY [facility] Last Admin: 08/29/17 10:19 Dose: 20 mg Quetiapine Fumarate (Seroquel -) 100 mg PO DAILY [facility] Last Admin: 08/29/17 10:19 Dose: 100 mg Torsemide (Demadex -) 20 mg PO Q2D [facility] Last Admin: 08/29/17 10:19 Dose: 20 mg - Objective Vital Signs: Vital Signs Temperature 36.8 C 08/29/17 08:10 Pulse Rate 88 08/29/17 10:19 Respiratory Rate 14 08/29/17 08:10 Blood Pressure 150/70 08/29/17 08:10 O2 Sat by Pulse Oximetry (%) 94 L 08/28/17 20:21 Constitutional: Yes: Well Nourished, No Distress, Calm Cardiovascular: Yes: Pulse Irregular. No: Tachycardia, Gallop, Murmur, Rub Respiratory: Yes: Regular, CTA Bilaterally. No: Rales, Rhonchi, Wheezes Gastrointestinal: Yes: Normal Bowel Sounds, Soft. No: Distention, Tenderness Extremities: Yes: WNL Edema: No Psychiatric: Yes: Alert, Oriented (x2, person and place) Labs: CBC, BMP 08/29/17 06:40 08/29/17 06:40 Problem List - Problems (1) Altered mental status Code(s): R41.82 - ALTERED MENTAL STATUS, UNSPECIFIED (2) Chest pain Code(s): R07.9 - CHEST PAIN, UNSPECIFIED Qualifiers: Chest pain type: unspecified Qualified Code(s): R07.9 - Chest pain, unspecified; R07.9 - Chest pain, unspecified (3) Dementia Code(s): F03.90 - UNSPECIFIED DEMENTIA WITHOUT BEHAVIORAL DISTURBANCE (4) HTN (hypertension) Code(s): I10 - ESSENTIAL (PRIMARY) HYPERTENSION (5) Atrial fibrillation with rapid ventricular response Code(s): I48.91 - UNSPECIFIED ATRIAL FIBRILLATION Assessment/Plan (1) Altered mental status Assessment/Plan: -appreciate neurology assistance -continue seroquel Code(s): R41.82 - ALTERED MENTAL STATUS, UNSPECIFIED (2) Chest pain Assessment/Plan: -currently chest pain free -appreciate cardiology assistance Code(s): R07.9 - CHEST PAIN, UNSPECIFIED Qualifiers: Chest pain type: unspecified Qualified Code(s): R07.9 - Chest pain, unspecified; R07.9 - Chest pain, unspecified (3) Dementia Assessment/Plan: -continue seroquel -neurology following Code(s): F03.90 - UNSPECIFIED DEMENTIA WITHOUT BEHAVIORAL DISTURBANCE (4) HTN (hypertension) Assessment/Plan: -controlled -continue coreg, torsemide, and cozaar Code(s): I10 - ESSENTIAL (PRIMARY) HYPERTENSION (5) Afib with RVR -rate controlled -cardiology following (6) Thoracic aortic aneurysm -had long conversation with daughter -now insistent I speak with patient's vascular surgeon in [place] -called Dr Geiger at , no answer -will try again tomorrow -may not be a surgical candidate Dispo -rate control heart -may need outpatient evaluation at [facility] (daughter's request)
[2017-08-30 06:40] LABS: BASOPHIL 0.8 % (0-2.0); EOSINOPHIL 3.9 % (0-4.5); MCH 29.9 pg (25.7-33.7); MCHC 33.9 g/dl (32.0-36.0); MEAN CELL VOLUME 88.1 fl (80-96); MEAN PLT VOLUME 8.3 fl (7.5-11.1); NEUTROPHILS 57.3 % (42.8-82.8); PLATELET COUNT 191 K/MM3 (134-434); RDW 13.8 % (11.6-15.6); WHITE BLOOD COUNT 7.9 K/mm3 (4.0-10.0)
[2017-08-30 07:03] LABS: ANION GAP 8 (8-16); CALCIUM 8.6 mg/dL (8.5-10.1); CO2 33 mmol/L (21-32); CREATININE 0.8 mg/dL (0.55-1.02); GLUCOSE,RANDOM 124 mg/dL (74-106); MAGNESIUM 2.1 mg/dL (1.8-2.4); PHOSPHOROUS 3.7 mg/dL (2.5-4.9)
[2017-08-30] MEDS ORDERED: QUEtiapine FUMARATE 50 MG TABLET ONE (09:30)
--- NOTE | 2017-08-30 10:03 | PN ---
Progress Note (short form) - Note Progress Note: Neurology History of Present Illness: 87 y/o F recently moved to [facility] from [place] H/O HTN, CHF, High Cholesterol, Dementia , BIB family with an episode of agitation, patient was very agitated and was contacted over the weekend by answering service. Spoke to daughter and advised to bring to ER where he c/o chest pain admitted for further evaluation, patient is unable to provide much information, as per family patient has H/O Dementia and agittaion in the past but this episode was more intense, no documented fever, chills, nausea, vomiting, diarrhea head traum, in ED EKG unremarkale, CBC , BMP , Trop all normal. There is concern of his ability to care for self and daughter reported he has been progressively worsening. CT head completed and did not show acute changes. Patient well appearing this morning, calm, cooperative and conversing. Aide at bedside, no acute events this AM. Echo completed and with normal LV function, reviewed cardiology note. Abd aorta with ?thrombus on CT, CT aortogram mentioned, hospitalist coordinating with daughter regarding vascular management. Active Medications Carvedilol (Coreg -) 3.125 mg PO BID [facility] Last Admin: 08/29/17 22:14 Dose: 3.125 mg Cyanocobalamin (Vitamin B12 -) 1,000 mcg PO DAILY [facility] Last Admin: 08/29/17 10:19 Dose: 1,000 mcg Digoxin (Lanoxin -) 0.125 mg PO DAILY [facility] Last Admin: 08/29/17 10:19 Dose: 0.125 mg Enoxaparin Sodium (Lovenox -) 60 mg SQ Q12H [facility] Last Admin: 08/29/17 22:14 Dose: 60 mg Lorazepam (Ativan Injection -) 0.5 mg IM Q8H PRN PRN Reason: AGITATION Last Admin: 08/27/17 13:56 Dose: 0.5 mg Metoprolol Tartrate (Lopressor Injection -) 2.5 mg IVPUSH Q4H PRN PRN Reason: TACHYCARDIA Last Admin: 08/28/17 11:05 Dose: 2.5 mg Multivitamins/Minerals/Vitamin C (Tab-A-Vit -) 1 tab PO DAILY [facility] Last Admin: 08/29/17 10:19 Dose: 1 tab Pantoprazole Sodium (Protonix -) 20 mg PO DAILY [facility] Last Admin: 08/29/17 10:19 Dose: 20 mg Quetiapine Fumarate (Seroquel -) 100 mg PO DAILY [facility] Last Admin: 08/29/17 10:19 Dose: 100 mg Torsemide (Demadex -) 20 mg PO Q2D [facility] Last Admin: 08/29/17 10:19 Dose: 20 mg Physical Examination Vital Signs: Vital Signs Period Temp Pulse Resp BP Sys/[place] Pulse Ox Last 24 Hr 97.0 F-98.3 F 86-120 16-20 109-130/72-96 96 Constitutional: Yes: Well Nourished, No Distress, Other (agitated) Eyes: Yes: Conjunctiva Clear, EOM Intact HENT: Yes: WNL, Atraumatic, Normocephalic Neck: Yes: WNL, Supple, Trachea Midline Cardiovascular: Yes: Regular Rate and Rhythm, Pulse Irregular, Murmur. No: Bruit, JVD Respiratory: Yes: Regular, CTA Bilaterally Gastrointestinal: Yes: WNL, Normal Bowel Sounds, Soft Musculoskeletal: Yes: WNL. No: Back Pain Extremities: Yes: WNL. No: Calf Tenderness Edema: LLE: 1+, RLE: 1+ Peripheral Pulses: Left Doralis Pedis: 1+, Right Dorsalis Pedis: 1+ Neurological: CN intact, strength equal, b/l, sensory normal, finger to nose intact CBCD WBC 7.9 K/mm3 (4.0-10.0) 08/30/17 06:15 RBC 4.80 M/mm3 (3.60-5.2) 08/30/17 06:15 Hgb 14.4 GM/dL (10.7-15.3) 08/30/17 06:15 Hct 42.3 % (32.4-45.2) 08/30/17 06:15 MCV 88.1 fl (80-96) 08/30/17 06:15 MCHC 33.9 g/dl (32.0-36.0) 08/30/17 06:15 RDW 13.8 % (11.6-15.6) 08/30/17 06:15 Plt Count 191 K/MM3 (134-434) 08/30/17 06:15 MPV 8.3 fl (7.5-11.1) 08/30/17 06:15 CMP Sodium 140 mmol/L (136-145) 08/30/17 06:15 Potassium 3.7 mmol/L (3.5-5.1) 08/30/17 06:15 Chloride 99 mmol/L (98-107) 08/30/17 06:15 Carbon Dioxide 33 mmol/L (21-32) H 08/30/17 06:15 Anion Gap 8 (8-16) 08/30/17 06:15 BUN 23 mg/dL (7-18) H 08/30/17 06:15 Creatinine 0.8 mg/dL (0.55-1.02) 08/30/17 06:15 Creat Clearance w eGFR > 60 (>60) 08/26/17 05:35 Calcium 8.6 mg/dL (8.5-10.1) 08/30/17 06:15 Total Bilirubin 1.0 mg/dL (0.2-1.0) D 08/26/17 05:35 AST 19 U/L (15-37) 08/26/17 05:35 ALT 19 U/L (12-78) 08/26/17 05:35 Alkaline Phosphatase 102 U/L (45-117) 08/26/17 05:35 Total Protein 6.9 g/dl (6.4-8.2) 08/26/17 05:35 Albumin 4.0 g/dl (3.4-5.0) 08/26/17 05:[address] head reviewed Echo reviewed CT Abd reviewed Plan 87 y/o F recently moved to [facility] [place] from [place] H/O HTN, CHF, High Cholesterol, Dementia , BIB family with an episode of agitation, patient was very agitated and was contacted over the weekend by answering service. Spoke to daughter and advised to bring to ER where he c/o chest pain admitted for further evaluation, patient is unable to provide much information, as per family patient has H/O Dementia and agittaion in the past but this episode was more intense, no documented fever, chills, nausea, vomiting, diarrhea head traum, in ED EKG unremarkale, CBC , BMP , Trop all normal. There is concern of his ability to care for self and daughter reported he has been progressively worsening. CT head completed and did not show acute changes. Echo with normal LV function and EF CT aortogram recommended, will defer to hospitalist who is coordinating with daughter Seroquel being continued. Monitor blood pressure Goal range < 140/90 Continue Statin for HLD Fall precautions Maintain IV/PO hydration Neurologically stable at this time
--- NOTE | 2017-08-30 10:19 | PN ---
Progress Note (short form) - Note Progress Note: cc: AR, afib, aortic aneurysm s: denies cp sob palps dizzy, no overnight events no cigs Current Medications Generic Name Dose Route Start Last Admin Trade Name Freq PRN Reason Stop Dose Admin Carvedilol 3.125 mg 08/25/17 22:00 08/29/17 22:14 Coreg - PO 3.125 mg BID DAYDAY Administration Cyanocobalamin 1,000 mcg 08/26/17 10:00 08/29/17 10:19 Vitamin B12 - PO 1,000 mcg DAILY DAYDAY Administration Digoxin 0.125 mg 08/26/17 10:00 08/29/17 10:19 Lanoxin - PO 0.125 mg DAILY DAYDAY Administration Enoxaparin Sodium 60 mg 08/28/17 22:00 08/29/17 22:14 Lovenox - SQ 60 mg Q12H DAYDAY Administration Lorazepam 0.5 mg 08/26/17 05:43 08/27/17 13:56 Ativan Injection - IM 0.5 mg Q8H PRN Administration AGITATION Metoprolol Tartrate 2.5 mg 08/28/17 19:48 08/28/17 11:05 Lopressor Injection - IVPUSH 2.5 mg Q4H PRN Administration TACHYCARDIA Multivitamins/Minerals/Vitamin C 1 tab 08/26/17 10:00 08/29/17 10:19 Tab-A-Vit - PO 1 tab DAILY DAYDAY Administration Pantoprazole Sodium 20 mg 08/26/17 10:00 08/29/17 10:19 Protonix - PO 20 mg DAILY DAYDAY Administration Quetiapine Fumarate 100 mg 08/26/17 10:00 08/29/17 10:19 Seroquel - PO 100 mg DAILY DAYDAY Administration Torsemide 20 mg 08/27/17 10:00 08/29/17 10:19 Demadex - PO 20 mg Q2D DAYDAY Administration Vital Signs Temp 97.8 F 08/30/17 06:01 Pulse 86 08/30/17 06:01 Resp 20 08/30/17 06:01 BP 125/76 08/30/17 06:01 Pulse Ox 96 08/29/17 21:00 Intake & Output 08/29/17 08/29/17 08/30/17 11:59 23:59 11:59 Intake Total 700 Balance 700 Intake: Oral 700 Other: Voiding Method Bedside Commode Bedside Commode Incontinent # Unmeasured Voids Void 3 2 Bowel Movement Yes Constitutional: Yes: Well Nourished, No Distress, Calm jvd flat, neck supple Cardiovascular: Yes:rrr Murmur (1/6 SUNNY rusb), S1, S2. No: Gallop. non- displace pmi Respiratory: Yes: regular, CTA Bilaterally No: Accessory Muscle Use, Rales, Wheezes + bs soft nt nd, no hsm Extremities: No: Cold, no cyanosis or clubbing. Edema: No Neurological: Yes: Alert. not oriented. No: Seizure Psychiatric: No: Agitated + dp/pt no jaundice, diaphoresis Labs: Laboratory Last Values WBC 7.9 K/mm3 (4.0-10.0) 08/30/17 06:15 RBC 4.80 M/mm3 (3.60-5.2) 08/30/17 06:15 Hgb 14.4 GM/dL (10.7-15.3) 08/30/17 06:15 Hct 42.3 % (32.4-45.2) 08/30/17 06:15 MCV 88.1 fl (80-96) 08/30/17 06:15 MCH 29.9 pg (25.7-33.7) 08/30/17 06:15 MCHC 33.9 g/dl (32.0-36.0) 08/30/17 06:15 RDW 13.8 % (11.6-15.6) 08/30/17 06:15 Plt Count 191 K/MM3 (134-434) 08/30/17 06:15 MPV 8.3 fl (7.5-11.1) 08/30/17 06:15 Neutrophils % 57.3 % (42.8-82.8) 08/30/17 06:15 Lymphocytes % 30.0 % (8-40) 08/30/17 06:15 Monocytes % 8.0 % (3.8-10.2) 08/30/17 06:15 Eosinophils % 3.9 % (0-4.5) 08/30/17 06:15 Basophils % 0.8 % (0-2.0) 08/30/17 06:15 Sodium 140 mmol/L (136-145) 08/30/17 06:15 Potassium 3.7 mmol/L (3.5-5.1) 08/30/17 06:15 Chloride 99 mmol/L (98-107) 08/30/17 06:15 Carbon Dioxide 33 mmol/L (21-32) H 08/30/17 06:15 Anion Gap 8 (8-16) 08/30/17 06:15 BUN 23 mg/dL (7-18) H 08/30/17 06:15 Creatinine 0.8 mg/dL (0.55-1.02) 08/30/17 06:15 Creat Clearance w eGFR > 60 (>60) 08/26/17 05:35 Random Glucose 124 mg/dL (74-106) H 08/30/17 06:15 Hemoglobin A1c % 6.5 % (4.8-6.0) H 08/26/17 05:35 Calcium 8.6 mg/dL (8.5-10.1) 08/30/17 06:15 Phosphorus 3.7 mg/dL (2.5-4.9) 08/30/17 06:15 Magnesium 2.1 mg/dL (1.8-2.4) 08/30/17 06:15 Total Bilirubin 1.0 mg/dL (0.2-1.0) D 08/26/17 05:35 AST 19 U/L (15-37) 08/26/17 05:35 ALT 19 U/L (12-78) 08/26/17 05:35 Alkaline Phosphatase 102 U/L (45-117) 08/26/17 05:35 Creatine Kinase 97 IU/L (26-192) 08/27/17 06:25 Troponin I < 0.02 ng/ml (0.00-0.05) 08/27/17 06:25 Total Protein 6.9 g/dl (6.4-8.2) 08/26/17 05:35 Albumin 4.0 g/dl (3.4-5.0) 08/26/17 05:35 Triglycerides 184 mg/dL (35-160) H 08/25/17 19:00 Cholesterol 131 mg/dL (50-200) 08/25/17 19:00 Total LDL Cholesterol 65 mg/dL (5-100) 08/25/17 19:00 HDL Cholesterol 47 mg/dL (40-60) 08/25/17 19:00 Lipase 95 U/L (73-393) 08/25/17 14:36 Vitamin B12 1482 pg/ml (180-914) H 08/26/17 05:35 Folate >1554 ng/mL (>498) 08/27/17 06:25 Folate Hemolysate >620.0 ng/mL (Not Estab.) 08/27/17 06:25 TSH 12.50 uIU/ml (0.358-3.74) H 08/27/17 06:25 Urine Color Yellow 08/25/17 14:10 Urine Appearance Clear 08/25/17 14:10 Urine pH 6.0 (5.0-8.0) 08/25/17 14:10 Ur Specific [place] 1.015 (1.005-1.025) 08/25/17 14:10 Urine Protein Negative (NEGATIVE) 08/25/17 14:10 Urine Glucose (UA) Negative (NEGATIVE) 08/25/17 14:10 Urine Ketones Negative (NEGATIVE) 08/25/17 14:10 Urine Blood Negative (NEGATIVE) 08/25/17 14:10 Urine Nitrite Negative (NEGATIVE) 08/25/17 14:10 Urine Bilirubin Negative (NEGATIVE) 08/25/17 14:10 Urine Urobilinogen Negative mg/dL (0.2-1.0) 08/25/17 14:10 Ur Leukocyte Esterase Negative (NEGATIVE) 08/25/17 14:10 Digoxin 0.9479 ng/ml (0.8-2.0) 08/27/17 06:25 tele: sr echo 08/2017: nl lv/rv. 1+ as (MG 7 mmHg), Severe AR. 1+ mac/mr. mild root dilation. + dilation of asc aorta (5.0 cm). Aorta u/s 08/2017: distal abd aorta 2.7 cm with thrombus (thrombus vs. thrombosed dissection) --> rec cta CTA 08/2017 prelim report: densely calc cors. 6.0 x 5.6 cm asc aorta aneurysm without dissection. 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 [place] aorta normal enhancement with some atherosclerotic change. Assessment/Plan 87 yo female with HTN, admitted with mental status changes and agitation and reported chest pain prior to ER. Chest pain -Pain on history is more epigastric/flank,though confounded by pt dementia. No further cp. -ECG without ischemic changes and enzymes negative x 3 (4.5 hrs apart) -Now noted to have severe AR, ascending aorta aneurysm and new onset afib, all which may be contributing to sx's. See plan below. ascending aortic aneurysm - CTA with 6.0 x 5.6 cm. No evidence of dissection. Patient has indication for surgical evaluation, but likely poor candidate due to co-morbidities/ dementia. This was d/w ct surgery at [facility] and transfer was denied as she was deemed not at candidate for surgery. Family now requesting further discussion with vascular. severe AR - symptomatic with CP. Does not appear decompensated. Would maintain elevated HR (90's-110's) to limit time in diastole and prevent decompensation. - Patient has surgical indication but poor surgical candidate per CTS afib. - patient on digoxin as outpatient but did not carry diagnosis of afib, ? new onset. - con't dig, coreg. (dig level OK 08/27). Would NOT try to aggressively rate control b/c of severe AR. ( maintain HR's 90's -110's). Can give PRN IV metoprolol for HR's consistently > 130. - will cont with short acting anticoagulation (lovenox) until overall plan for her care is clarified. s/p abdominal aortic bypass graft from infrarenal aorta to iliac arteries - occluded graft on cta, normal enhancement of [place] aorta. HTN - In setting of asc aneursym/severe ar, goal sys bp < 130, Con't coreg with lenient rate control goals as above. agitation/MS change: -neuro note appreciated -CT head neg
[2017-08-30] MEDS: CARVEDILOL 3.125 MG TABLET (FP) PO SCH ×2 (10:20→21:58)
[2017-08-30] MEDS: MULTIVITAMINS (DAILY MVI) TABLET (FP) PO SCH (10:21)
[2017-08-30] MEDS: CYANOCOBALAMIN 1,000 MCG TABLET (FP) PO SCH (10:21)
[2017-08-30] MEDS: PANTOPRAZOLE 20 MG TABLET (FP) PO SCH (10:21)
[2017-08-30] MEDS: QUEtiapine FUMARATE 100 MG TABLET (FP) PO SCH (10:21)
[2017-08-30] MEDS: DIGOXIN 0.125 MG TABLET (FP) PO SCH (10:24)
[2017-08-30] MEDS: ENOXAPARIN NA (PORCINE) 60 MG/0.6 ML DISP.SYRIN SQ SCH ×2 (10:24→21:59)
--- NOTE | 2017-08-30 13:35 | PN ---
Progress Note, Physician Chief Complaint: Patient is without complaint. Denies cp, sob, n/v. - Current Medication List Current Medications: Active Medications Carvedilol (Coreg -) 3.125 mg PO BID [facility] Last Admin: 08/30/17 10:20 Dose: 3.125 mg Cyanocobalamin (Vitamin B12 -) 1,000 mcg PO DAILY [facility] Last Admin: 08/30/17 10:21 Dose: 1,000 mcg Digoxin (Lanoxin -) 0.125 mg PO DAILY [facility] Last Admin: 08/30/17 10:24 Dose: 0.125 mg Enoxaparin Sodium (Lovenox -) 60 mg SQ Q12H [facility] Last Admin: 08/30/17 10:24 Dose: 60 mg Lorazepam (Ativan Injection -) 0.5 mg IM Q8H PRN PRN Reason: AGITATION Last Admin: 08/27/17 13:56 Dose: 0.5 mg Metoprolol Tartrate (Lopressor Injection -) 2.5 mg IVPUSH Q4H PRN PRN Reason: TACHYCARDIA Last Admin: 08/28/17 11:05 Dose: 2.5 mg Multivitamins/Minerals/Vitamin C (Tab-A-Vit -) 1 tab PO DAILY [facility] Last Admin: 08/30/17 10:21 Dose: 1 tab Pantoprazole Sodium (Protonix -) 20 mg PO DAILY [facility] Last Admin: 08/30/17 10:21 Dose: 20 mg Quetiapine Fumarate (Seroquel -) 100 mg PO DAILY [facility] Last Admin: 08/30/17 10:21 Dose: 100 mg Torsemide (Demadex -) 20 mg PO Q2D [facility] Last Admin: 08/29/17 10:19 Dose: 20 mg - Objective Vital Signs: Vital Signs Temperature 36.6 C 08/30/17 06:01 Pulse Rate 82 08/30/17 10:24 Respiratory Rate 20 08/30/17 06:01 Blood Pressure 125/76 08/30/17 06:01 O2 Sat by Pulse Oximetry (%) 96 08/29/17 21:00 Constitutional: Yes: Well Nourished, No Distress, Calm Cardiovascular: Yes: Tachycardia, Pulse Irregular. No: Gallop, Murmur, Rub Respiratory: Yes: Regular, CTA Bilaterally. No: Rales, Rhonchi, Wheezes Gastrointestinal: Yes: Normal Bowel Sounds, Soft. No: Distention, Tenderness Extremities: Yes: WNL Edema: No Labs: CBC, BMP 08/30/17 06:15 08/30/17 06:15 Problem List - Problems (1) Altered mental status Code(s): R41.82 - ALTERED MENTAL STATUS, UNSPECIFIED (2) Chest pain Code(s): R07.9 - CHEST PAIN, UNSPECIFIED Qualifiers: Chest pain type: unspecified Qualified Code(s): R07.9 - Chest pain, unspecified; R07.9 - Chest pain, unspecified (3) Dementia Code(s): F03.90 - UNSPECIFIED DEMENTIA WITHOUT BEHAVIORAL DISTURBANCE (4) HTN (hypertension) Code(s): I10 - ESSENTIAL (PRIMARY) HYPERTENSION (5) Atrial fibrillation with rapid ventricular response Code(s): I48.91 - UNSPECIFIED ATRIAL FIBRILLATION Assessment/Plan (1) Altered mental status Assessment/Plan: -appreciate neurology assistance -continue seroquel Code(s): R41.82 - ALTERED MENTAL STATUS, UNSPECIFIED (2) Chest pain Assessment/Plan: -currently chest pain free -appreciate cardiology assistance Code(s): R07.9 - CHEST PAIN, UNSPECIFIED Qualifiers: Chest pain type: unspecified Qualified Code(s): R07.9 - Chest pain, unspecified; R07.9 - Chest pain, unspecified (3) Dementia Assessment/Plan: -continue seroquel -neurology following Code(s): F03.90 - UNSPECIFIED DEMENTIA WITHOUT BEHAVIORAL DISTURBANCE (4) HTN (hypertension) Assessment/Plan: -controlled -continue coreg, torsemide, and cozaar Code(s): I10 - ESSENTIAL (PRIMARY) HYPERTENSION (5) Afib with RVR -cardiology following -continue lovenox -asher control per cardiology (6) Thoracic aortic aneurysm -family wants surgery -called Dr Geiger at , message left -will try again tomorrow -may not be a surgical candidate Dispo -rate control heart -may need outpatient evaluation at [facility] (daughter's request)
[2017-08-31] MEDS ORDERED: QUEtiapine FUMARATE 50 MG TABLET ONE (09:36)
--- NOTE | 2017-08-31 09:46 | PN ---
Progress Note (short form) - Note Progress Note: Neurology History of Present Illness: 87 y/o F [facility] [place] H/O HTN, CHF, High Cholesterol, Dementia , BIB family with an episode of agitation, patient was very agitated and was contacted over the weekend by answering service. Spoke to daughter and advised to bring to ER where he c/o chest pain admitted for further evaluation, patient is unable to provide much information, as per family patient has H/O Dementia and agittaion in the past but this episode was more intense, no documented fever, chills, nausea, vomiting, diarrhea head traum, in ED EKG unremarkale, CBC , BMP , Trop all normal. There is concern of his ability to care for self and daughter reported he has been progressively worsening. CT head completed and did not show acute changes. Patient well appearing this morning, calm, cooperative and conversing. Aide at bedside, no acute events this AM. Echo completed and with normal LV function, reviewed cardiology note. Abd aorta with ?thrombus on CT, CT aortogram mentioned, hospitalist coordinating with daughter regarding vascular management. Seems family may be interested in surgical intervention, unclear if patient would be candidate. Neurologically stable at this time. Active Medications Carvedilol (Coreg -) 3.125 mg PO BID [facility] Last Admin: 08/30/17 21:58 Dose: 3.125 mg Cyanocobalamin (Vitamin B12 -) 1,000 mcg PO DAILY [facility] Last Admin: 08/30/17 10:21 Dose: 1,000 mcg Digoxin (Lanoxin -) 0.125 mg PO DAILY [facility] Last Admin: 08/30/17 10:24 Dose: 0.125 mg Enoxaparin Sodium (Lovenox -) 60 mg SQ Q12H DAYDAY Last Admin: 08/30/17 21:59 Dose: 60 mg Lorazepam (Ativan Injection -) 0.5 mg IM Q8H PRN PRN Reason: AGITATION Last Admin: 08/27/17 13:56 Dose: 0.5 mg Metoprolol Tartrate (Lopressor Injection -) 2.5 mg IVPUSH Q4H PRN PRN Reason: TACHYCARDIA Last Admin: 08/28/17 11:05 Dose: 2.5 mg Multivitamins/Minerals/Vitamin C (Tab-A-Vit -) 1 tab PO DAILY [facility] Last Admin: 10/26/17 10:21 Dose: 1 tab Pantoprazole Sodium (Protonix -) 20 mg PO DAILY [facility] Last Admin: 08/30/17 10:21 Dose: 20 mg Quetiapine Fumarate (Seroquel -) 100 mg PO DAILY [facility] Last Admin: 08/30/17 10:21 Dose: 100 mg Torsemide (Demadex -) 20 mg PO Q2D [facility] Last Admin: 08/29/17 10:19 Dose: 20 mg Physical Examination Vital Signs: Vital Signs Period Temp Pulse Resp BP Sys/[place] Pulse Ox Last 24 Hr 97.5 F-98.1 F 78-115 18-20 112-134/59-73 96-96 Constitutional: Yes: Well Nourished, No Distress, Other (agitated) Eyes: Yes: Conjunctiva Clear, EOM Intact HENT: Yes: WNL, Atraumatic, Normocephalic Neck: Yes: WNL, Supple, Trachea Midline Cardiovascular: Yes: Regular Rate and Rhythm, Pulse Irregular, Murmur. No: Bruit, JVD Respiratory: Yes: Regular, CTA Bilaterally Gastrointestinal: Yes: WNL, Normal Bowel Sounds, Soft Musculoskeletal: Yes: WNL. No: Back Pain Extremities: Yes: WNL. No: Calf Tenderness Edema: LLE: 1+, RLE: 1+ Peripheral Pulses: Left [place] Pedis: 1+, Right Dorsalis Pedis: 1+ Neurological: CN intact, strength equal, b/l, sensory normal, finger to nose intact CBCD WBC 7.9 K/mm3 (4.0-10.0) 08/30/17 06:15 RBC 4.80 M/mm3 (3.60-5.2) 08/30/17 06:15 Hgb 14.4 GM/dL (10.7-15.3) 08/30/17 06:15 Hct 42.3 % (32.4-45.2) 08/30/17 06:15 MCV 88.1 fl (80-96) 08/30/17 06:15 MCHC 33.9 g/dl (32.0-36.0) 08/30/17 06:15 RDW 13.8 % (11.6-15.6) 08/30/17 06:15 Plt Count 191 K/MM3 (134-434) 08/30/17 06:15 MPV 8.3 fl (7.5-11.1) 08/30/17 06:15 CMP Sodium 140 mmol/L (136-145) 08/30/17 06:15 Potassium 3.7 mmol/L (3.5-5.1) 08/30/17 06:15 Chloride 99 mmol/L (98-107) 08/30/17 06:15 Carbon Dioxide 33 mmol/L (21-32) H 08/30/17 06:15 Anion Gap 8 (8-16) 08/30/17 06:15 BUN 23 mg/dL (7-18) H 08/30/17 06:15 Creatinine 0.8 mg/dL (0.55-1.02) 08/30/17 06:15 Creat Clearance w eGFR > 60 (>60) 08/26/17 05:35 Calcium 8.6 mg/dL (8.5-10.1) 08/30/17 06:15 Total Bilirubin 1.0 mg/dL (0.2-1.0) D 08/26/17 05:35 AST 19 U/L (15-37) 08/26/17 05:35 ALT 19 U/L (12-78) 08/26/17 05:35 Alkaline Phosphatase 102 U/L (45-117) 08/26/17 05:35 Total Protein 6.9 g/dl (6.4-8.2) 08/26/17 05:35 Albumin 4.0 g/dl (3.4-5.0) 08/26/17 05:[address] head reviewed Echo reviewed CT Abd reviewed Plan 87 y/o F [facility] [place] H/O HTN, CHF, High Cholesterol, Dementia , BIB family with an episode of agitation, patient was very agitated and was contacted over the weekend by answering service. Spoke to daughter and advised to bring to ER where he c/o chest pain admitted for further evaluation, patient is unable to provide much information, as per family patient has H/O Dementia and agittaion in the past but this episode was more intense, no documented fever, chills, nausea, vomiting, diarrhea head traum, in ED EKG unremarkale, CBC , BMP , Trop all normal. There is concern of his ability to care for self and daughter reported he has been progressively worsening. CT head completed and did not show acute changes. Echo with normal LV function and EF CT aortogram recommended, will defer to hospitalist who is coordinating with daughter Unclear if surgical candidate Seroquel being continued. Monitor blood pressure Goal range < 140/90 Continue Statin for HLD Fall precautions Maintain IV/PO hydration Neurologically stable at this time
--- NOTE | 2017-08-31 10:54 | PN ---
Progress Note (short form) - Note Progress Note: cc: AR, afib, aortic aneurysm s: denies cp sob palps dizzy, no overnight events no cigs Current Medications Generic Name Dose Route Start Last Admin Trade Name Freq PRN Reason Stop Dose Admin Carvedilol 3.125 mg 08/25/17 22:00 08/30/17 21:58 Coreg - PO 3.125 mg BID DAYDAY Administration Cyanocobalamin 1,000 mcg 08/26/17 10:00 08/30/17 10:21 Vitamin B12 - PO 1,000 mcg DAILY DAYDAY Administration Digoxin 0.125 mg 08/26/17 10:00 08/30/17 10:24 Lanoxin - PO 0.125 mg DAILY DAYDAY Administration Enoxaparin Sodium 60 mg 08/28/17 22:00 08/30/17 21:59 Lovenox - SQ 60 mg Q12H DAYDAY Administration Lorazepam 0.5 mg 08/26/17 05:43 08/27/17 13:56 Ativan Injection - IM 0.5 mg Q8H PRN Administration AGITATION Metoprolol Tartrate 2.5 mg 08/28/17 19:48 08/28/17 11:05 Lopressor Injection - IVPUSH 2.5 mg Q4H PRN Administration TACHYCARDIA Multivitamins/Minerals/Vitamin C 1 tab 08/26/17 10:00 08/30/17 10:21 Tab-A-Vit - PO 1 tab DAILY DAYDAY Administration Pantoprazole Sodium 20 mg 08/26/17 10:00 08/30/17 10:21 Protonix - PO 20 mg DAILY DAYDAY Administration Quetiapine Fumarate 100 mg 08/26/17 10:00 08/30/17 10:21 Seroquel - PO 100 mg DAILY DAYDAY Administration Torsemide 20 mg 08/27/17 10:00 08/29/17 10:19 Demadex - PO 20 mg Q2D DAYDAY Administration Vital Signs Temp 97.6 F 08/31/17 06:00 Pulse 83 08/31/17 06:00 Resp 20 08/31/17 06:00 BP 134/73 08/31/17 06:00 Pulse Ox 96 08/30/17 21:10 Intake & Output 08/30/17 08/30/17 08/31/17 11:59 23:59 11:59 Intake Total 910 250 Balance 910 250 Intake: IV 10 10 Saline Lock 10 10 Oral 900 240 Other: Voiding Method Bedside Commode Bedside Commode Bedside Commode # Unmeasured Voids Void 2 1 1 Bowel Movement No No Constitutional: Yes: Well Nourished, No Distress, Calm jvd flat, neck supple Cardiovascular: Yes:rrr Murmur (1/6 SUNNY rusb), S1, S2. No: Gallop. non- displace pmi Respiratory: Yes: regular, CTA Bilaterally No: Accessory Muscle Use, Rales, Wheezes + bs soft nt nd, no hsm Extremities: No: Cold, no cyanosis or clubbing. Edema: No Neurological: Yes: Alert. not oriented. No: Seizure Psychiatric: No: Agitated + dp/pt no jaundice, diaphoresis Labs: Laboratory Last Values WBC 7.9 K/mm3 (4.0-10.0) 08/30/17 06:15 RBC 4.80 M/mm3 (3.60-5.2) 08/30/17 06:15 Hgb 14.4 GM/dL (10.7-15.3) 08/30/17 06:15 Hct 42.3 % (32.4-45.2) 08/30/17 06:15 MCV 88.1 fl (80-96) 08/30/17 06:15 MCH 29.9 pg (25.7-33.7) 08/30/17 06:15 MCHC 33.9 g/dl (32.0-36.0) 08/30/17 06:15 RDW 13.8 % (11.6-15.6) 08/30/17 06:15 Plt Count 191 K/MM3 (134-434) 08/30/17 06:15 MPV 8.3 fl (7.5-11.1) 08/30/17 06:15 Neutrophils % 57.3 % (42.8-82.8) 08/30/17 06:15 Lymphocytes % 30.0 % (8-40) 08/30/17 06:15 Monocytes % 8.0 % (3.8-10.2) 08/30/17 06:15 Eosinophils % 3.9 % (0-4.5) 08/30/17 06:15 Basophils % 0.8 % (0-2.0) 08/30/17 06:15 Sodium 140 mmol/L (136-145) 08/30/17 06:15 Potassium 3.7 mmol/L (3.5-5.1) 08/30/17 06:15 Chloride 99 mmol/L (98-107) 08/30/17 06:15 Carbon Dioxide 33 mmol/L (21-32) H 08/30/17 06:15 Anion Gap 8 (8-16) 08/30/17 06:15 BUN 23 mg/dL (7-18) H 08/30/17 06:15 Creatinine 0.8 mg/dL (0.55-1.02) 08/30/17 06:15 Creat Clearance w eGFR > 60 (>60) 08/26/17 05:35 Random Glucose 124 mg/dL (74-106) H 08/30/17 06:15 Hemoglobin A1c % 6.5 % (4.8-6.0) H 08/26/17 05:35 Calcium 8.6 mg/dL (8.5-10.1) 08/30/17 06:15 Phosphorus 3.7 mg/dL (2.5-4.9) 08/30/17 06:15 Magnesium 2.1 mg/dL (1.8-2.4) 08/30/17 06:15 Total Bilirubin 1.0 mg/dL (0.2-1.0) D 08/26/17 05:35 AST 19 U/L (15-37) 08/26/17 05:35 ALT 19 U/L (12-78) 08/26/17 05:35 Alkaline Phosphatase 102 U/L (45-117) 08/26/17 05:35 Creatine Kinase 97 IU/L (26-192) 08/27/17 06:25 Troponin I < 0.02 ng/ml (0.00-0.05) 08/27/17 06:25 Total Protein 6.9 g/dl (6.4-8.2) 08/26/17 05:35 Albumin 4.0 g/dl (3.4-5.0) 08/26/17 05:35 Triglycerides 184 mg/dL (35-160) H 08/25/17 19:00 Cholesterol 131 mg/dL (50-200) 08/25/17 19:00 Total LDL Cholesterol 65 mg/dL (5-100) 08/25/17 19:00 HDL Cholesterol 47 mg/dL (40-60) 08/25/17 19:00 Lipase 95 U/L (73-393) 08/25/17 14:36 Vitamin B12 1482 pg/ml (180-914) H 08/26/17 05:35 Folate >1554 ng/mL (>498) 08/27/17 06:25 Folate Hemolysate >620.0 ng/mL (Not Estab.) 08/27/17 06:25 TSH 12.50 uIU/ml (0.358-3.74) H 08/27/17 06:25 Urine Color Yellow 08/25/17 14:10 Urine Appearance Clear 08/25/17 14:10 Urine pH 6.0 (5.0-8.0) 08/25/17 14:10 Ur Specific [place] 1.015 (1.005-1.025) 08/25/17 14:10 Urine Protein Negative (NEGATIVE) 08/25/17 14:10 Urine Glucose (UA) Negative (NEGATIVE) 08/25/17 14:10 Urine Ketones Negative (NEGATIVE) 08/25/17 14:10 Urine Blood Negative (NEGATIVE) 08/25/17 14:10 Urine Nitrite Negative (NEGATIVE) 08/25/17 14:10 Urine Bilirubin Negative (NEGATIVE) 08/25/17 14:10 Urine Urobilinogen Negative mg/dL (0.2-1.0) 08/25/17 14:10 Ur Leukocyte Esterase Negative (NEGATIVE) 08/25/17 14:10 Digoxin 0.9479 ng/ml (0.8-2.0) 08/27/17 06:25 tele: sr echo 08/2017: nl lv/rv. 1+ as (MG 7 mmHg), Severe AR. 1+ mac/mr. mild root dilation. + dilation of asc aorta (5.0 cm). Aorta u/s 08/2017: distal abd aorta 2.7 cm with thrombus (thrombus vs. thrombosed dissection) --> rec cta CTA 08/2017: densely calc cors. 6.0 x 5.6 cm asc aorta aneurysm without dissection. 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 [place] aorta normal enhancement with some atherosclerotic change. Assessment/Plan 87 yo female with HTN, admitted with mental status changes and agitation and reported chest pain prior to ER. Chest pain -Pain on history is more epigastric/flank,though somewhat confounded by pt dementia. No further cp. -ECG without ischemic changes and enzymes negative x 3 -Now noted to have severe AR, ascending aorta aneurysm and new onset afib, all which may be contributing to sx's. See plan below. ascending aortic aneurysm - CTA with 6.0 x 5.6 cm. No evidence of dissection. Patient has indication for surgical evaluation, but poor candidate due to co-morbidities/dementia. This was d/w ct surgery at [facility] and transfer was denied as she was deemed not at candidate for surgery. Family now requesting further discussion with vascular. severe AR - symptomatic with CP. Does not appear decompensated. Would maintain elevated HR (90's-110's) to limit time in diastole and prevent decompensation. - Patient has surgical indication but poor surgical candidate per CTS afib. - patient on digoxin as outpatient but did not carry diagnosis of afib, ? new onset. - con't dig, coreg. (dig level OK here). Would NOT try to aggressively rate control b/c of severe AR. ( maintain HR's 90's -110's). - will cont with short acting anticoagulation (lovenox) until overall plan for her care is clarified. s/p abdominal aortic bypass graft from infrarenal aorta to iliac arteries - occluded graft on cta, normal enhancement of [place] aorta. HTN - In setting of asc aneursym/severe ar, goal sys bp < 130, Con't coreg with lenient rate control goals as above. agitation/MS change: -neuro note appreciated -CT head neg
--- NOTE | 2017-08-31 12:15 | PN ---
Progress Note, Physician Chief Complaint: Patient is without complaint. Denies cp, sob, n/v. - Current Medication List Current Medications: Active Medications Carvedilol (Coreg -) 3.125 mg PO BID [facility] Last Admin: 08/30/17 21:58 Dose: 3.125 mg Cyanocobalamin (Vitamin B12 -) 1,000 mcg PO DAILY [facility] Last Admin: 08/30/17 10:21 Dose: 1,000 mcg Digoxin (Lanoxin -) 0.125 mg PO DAILY [facility] Last Admin: 08/30/17 10:24 Dose: 0.125 mg Enoxaparin Sodium (Lovenox -) 60 mg SQ Q12H [facility] Last Admin: 08/30/17 21:59 Dose: 60 mg Lorazepam (Ativan Injection -) 0.5 mg IM Q8H PRN PRN Reason: AGITATION Last Admin: 08/27/17 13:56 Dose: 0.5 mg Metoprolol Tartrate (Lopressor Injection -) 2.5 mg IVPUSH Q4H PRN PRN Reason: TACHYCARDIA Last Admin: 08/28/17 11:05 Dose: 2.5 mg Multivitamins/Minerals/Vitamin C (Tab-A-Vit -) 1 tab PO DAILY [facility] Last Admin: 08/30/17 10:21 Dose: 1 tab Pantoprazole Sodium (Protonix -) 20 mg PO DAILY [facility] Last Admin: 08/30/17 10:21 Dose: 20 mg Quetiapine Fumarate (Seroquel -) 100 mg PO DAILY [facility] Last Admin: 08/30/17 10:21 Dose: 100 mg Torsemide (Demadex -) 20 mg PO Q2D [facility] Last Admin: 08/29/17 10:19 Dose: 20 mg - Objective Vital Signs: Vital Signs Temperature 36.4 C 08/31/17 06:00 Pulse Rate 83 08/31/17 06:00 Respiratory Rate 20 08/31/17 06:00 Blood Pressure 134/73 08/31/17 06:00 O2 Sat by Pulse Oximetry (%) 96 08/30/17 21:10 Constitutional: Yes: Well Nourished, No Distress, Calm Cardiovascular: Yes: Regular Rate and Rhythm. No: Gallop, Murmur, Rub Respiratory: Yes: Regular, CTA Bilaterally. No: Rales, Rhonchi, Wheezes Gastrointestinal: Yes: Normal Bowel Sounds, Soft. No: Distention, Tenderness Extremities: Yes: WNL Edema: No Labs: CBC, BMP 08/30/17 06:15 08/30/17 06:15 Problem List - Problems (1) Altered mental status Code(s): R41.82 - ALTERED MENTAL STATUS, UNSPECIFIED (2) Chest pain Code(s): R07.9 - CHEST PAIN, UNSPECIFIED Qualifiers: Chest pain type: unspecified Qualified Code(s): R07.9 - Chest pain, unspecified; R07.9 - Chest pain, unspecified (3) Dementia Code(s): F03.90 - UNSPECIFIED DEMENTIA WITHOUT BEHAVIORAL DISTURBANCE (4) HTN (hypertension) Code(s): I10 - ESSENTIAL (PRIMARY) HYPERTENSION (5) Atrial fibrillation with rapid ventricular response Code(s): I48.91 - UNSPECIFIED ATRIAL FIBRILLATION Assessment/Plan (1) Altered mental status Assessment/Plan: -appreciate neurology assistance -continue seroquel Code(s): R41.82 - ALTERED MENTAL STATUS, UNSPECIFIED (2) Chest pain Assessment/Plan: -currently chest pain free -appreciate cardiology assistance Code(s): R07.9 - CHEST PAIN, UNSPECIFIED Qualifiers: Chest pain type: unspecified Qualified Code(s): R07.9 - Chest pain, unspecified; R07.9 - Chest pain, unspecified (3) Dementia Assessment/Plan: -continue seroquel -neurology following Code(s): F03.90 - UNSPECIFIED DEMENTIA WITHOUT BEHAVIORAL DISTURBANCE (4) HTN (hypertension) Assessment/Plan: -controlled -continue coreg, torsemide, and cozaar Code(s): I10 - ESSENTIAL (PRIMARY) HYPERTENSION (5) Afib with RVR -cardiology following -continue lovenox, will d/w cardiology about termite treater anticoagulation on discharge -HR between 90-110s (6) Thoracic aortic aneurysm -d/w daughter who clarified her wishes: states she is not requesting surgery, but that she wants her mom at the place where she will receive the best care -outpatient vascular surgery recommended [facility] -since not requesting surgery, recommended discharge once medically stable to SNF to get strong and then outpatient follow up at [facility]. Daughter understood and agreed -called Dr Geiger at , message left Dispo -plan for discharge to SNF when stable from cardiology standpoint
[2017-08-31] MEDS: CARVEDILOL 3.125 MG TABLET (FP) PO SCH ×2 (12:18→22:13)
[2017-08-31] MEDS: MULTIVITAMINS (DAILY MVI) TABLET (FP) PO SCH (12:18)
[2017-08-31] MEDS: QUEtiapine FUMARATE 100 MG TABLET (FP) PO SCH (12:18)
[2017-08-31] MEDS: TORSEMIDE 20 MG TABLET (FP) PO SCH (12:18)
[2017-08-31] MEDS: ENOXAPARIN NA (PORCINE) 60 MG/0.6 ML DISP.SYRIN SQ SCH ×2 (12:19→22:13)
[2017-08-31] MEDS: DIGOXIN 0.125 MG TABLET (FP) PO SCH (12:19)
[2017-08-31] MEDS: PANTOPRAZOLE 20 MG TABLET (FP) PO SCH (12:19)
[2017-08-31] MEDS: CYANOCOBALAMIN 1,000 MCG TABLET (FP) PO SCH (12:19)
[2017-09-01 07:36] LABS: BASOPHIL 0.8 % (0-2.0); EOSINOPHIL 4.3 % (0-4.5); MCH 29.8 pg (25.7-33.7); MEAN CELL VOLUME 87.8 fl (80-96); MEAN PLT VOLUME 8.3 fl (7.5-11.1); PLATELET COUNT 175 K/MM3 (134-434); WHITE BLOOD COUNT 6.8 K/mm3 (4.0-10.0)
--- NOTE | 2017-09-01 08:05 | PN ---
Progress Note, Physician Chief Complaint: cp History of Present Illness: denies cp or palpitations; "a little, not bad" sob at times no syncope never cigs - Current Medication List Current Medications: Active Medications Carvedilol (Coreg -) 3.125 mg PO BID [facility] Last Admin: 08/31/17 22:13 Dose: 3.125 mg Cyanocobalamin (Vitamin B12 -) 1,000 mcg PO DAILY [facility] Last Admin: 08/31/17 12:19 Dose: 1,000 mcg Digoxin (Lanoxin -) 0.125 mg PO DAILY [facility] Last Admin: 08/31/17 12:19 Dose: 0.125 mg Enoxaparin Sodium (Lovenox -) 60 mg SQ Q12H [facility] Last Admin: 08/31/17 22:13 Dose: 60 mg Lorazepam (Ativan Injection -) 0.5 mg IM Q8H PRN PRN Reason: AGITATION Last Admin: 08/27/17 13:56 Dose: 0.5 mg Metoprolol Tartrate (Lopressor Injection -) 2.5 mg IVPUSH Q4H PRN PRN Reason: TACHYCARDIA Last Admin: 08/28/17 11:05 Dose: 2.5 mg Multivitamins/Minerals/Vitamin C (Tab-A-Vit -) 1 tab PO DAILY [facility] Last Admin: 08/31/17 12:18 Dose: 1 tab Pantoprazole Sodium (Protonix -) 20 mg PO DAILY [facility] Last Admin: 08/31/17 12:19 Dose: 20 mg Quetiapine Fumarate (Seroquel -) 100 mg PO DAILY [facility] Last Admin: 08/31/17 12:18 Dose: 100 mg Torsemide (Demadex -) 20 mg PO Q2D [facility] Last Admin: 08/31/17 12:18 Dose: 20 mg - Objective Vital Signs: Vital Signs Temperature 98 F 09/01/17 06:00 Pulse Rate 70 09/01/17 06:00 Respiratory Rate 18 09/01/17 06:00 Blood Pressure 122/60 09/01/17 06:00 O2 Sat by Pulse Oximetry (%) 98 08/31/17 21:00 Constitutional: Yes: No Distress, Calm Eyes: No: Sclera Icterus HENT: No: Nasal Congestion Cardiovascular: Yes: Regular Rate and Rhythm, Murmur (tds (loud cpap machine bed next to her): 1-2/6 SUNNY rusb; no diast m heard), S1, S2, Other (PMI non diplaced). No: JVD, Gallop Respiratory: Yes: CTA Bilaterally. No: Accessory Muscle Use, Rales, Wheezes Gastrointestinal: Yes: Normal Bowel Sounds, Soft. No: Tenderness Musculoskeletal: Yes: Other (No kyphosis) Extremities: No: Cyanosis Edema: No Integumentary: No: Jaundice Neurological: Yes: Alert. No: Seizure Psychiatric: No: Agitated Labs: CBC, BMP 09/01/17 05:20 - ....Imaging EKG: Other (telem: NSR, sinus tach, freq APCs, PSVT/PAT/possible AFL with 2:1 conduction, ? at times PAF with good HR control; no brittani's) Assessment/Plan echo 08/2017: nl lv/rv. 1+ as (MG 7 mmHg), Severe AR. 1+ mac/mr. mild root dilation. + dilation of asc aorta (5.0 cm). Aorta u/s 08/2017: distal abd aorta 2.7 cm with thrombus (thrombus vs. thrombosed dissection) --> rec cta CTA 08/2017 (dr leung review): densely calc cors. 6.0 x 5.6 cm asc aorta aneurysm without dissection. 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 [place] aorta normal enhancement with some atherosclerotic change. note: no [place] abdominal aorta aneurysm or thrombosed/chronic dissection appreciated per dr leung review Assessment/Plan 87 yo female with HTN, admitted with mental status changes and agitation and reported chest pain prior to ER. Chest pain? vs epigastric/flank pain: -no AAA to explain pain below the diaphragm -unclear if true cp occurred or not--could be due to ascending aorta aneurysm, if enlarging (no prior size reports available)--no dissection present -ECG without ischemic changes and enzymes negative x 3 -clinically stable since admit--observe ascending aortic aneurysm/severe AI - CTA with 6.0 x 5.6 cm. Patient has indication for surgical repair of ascending aorta as well as AVR, but poor candidate due to co-morbidities/ dementia. She has been assessed by CT surgery who felt that she is at prohibitive risk for poor outcome for surgery and transfer deemed inappropriate. - dr coleman notes appreciated--he further d/w'd daughter 08/31 who clarified her wishes: states she is not requesting surgery, but that she wants her mom at the place where she will receive the best care, and agrees to outpt CT surgery f /u after discharge - avoid excessive bradycardia to limit diastolic filling period (limit time for aortic valve regurgitation); watch for signs of chf PAF, PSVT/AT, ? AFL - patient on digoxin as outpatient, level good here--cont - having freq rapid atrial arrhythmias to 140s, exact rhythm uncertain; no britatni 's on tele -change coreg to propranolol 40 TID, monitor tele - consider add diltiazem (if bp allows) vs amio for suppression if continues to break through - Would NOT try to aggressively rate control b/c of severe AR. ( maintain HR's 90's -110's). - 87 yo pt who is very debilitated has signif incr'd risk of GIB on AC; furthermore, large aorta aneurysm with risk of rupture which would certainly be catastrophic if she is on AC at that time; given her baseline advanced dementia , this further sways the risk:benefit ration of AC away from aggressive CVA prevention. all in all, risk of harm from AC in this pt appears statistically most likely to be > benefits. - rec ASA only s/p abdominal aortic bypass graft from infrarenal aorta to iliac arteries - occluded graft on cta, normal enhancement of [place] aorta. HTN - In setting of asc aneursym/severe ar, goal sys bp <120/85 - ranging close to or below this target - changing BB regimen as above--observe bp trend and consider add gently to bp med regimen agitation/MS change: -neuro note appreciated -CT head neg hypothyroid: -TSH 12, per pmd
[2017-09-01 08:37] LABS: ANION GAP 11 (8-16); CALCIUM 8.7 mg/dL (8.5-10.1); CO2 31 mmol/L (21-32); CREATININE 0.8 mg/dL (0.55-1.02); GLUCOSE,RANDOM 102 mg/dL (74-106); MAGNESIUM 2.3 mg/dL (1.8-2.4); PHOSPHOROUS 3.8 mg/dL (2.5-4.9)
[2017-09-01] MEDS ORDERED: QUEtiapine FUMARATE 50 MG TABLET ONE ×2 (09:18→09:21)
[2017-09-01] MEDS: MULTIVITAMINS (DAILY MVI) TABLET (FP) PO SCH (09:19)
[2017-09-01] MEDS: DIGOXIN 0.125 MG TABLET (FP) PO SCH (09:19)
[2017-09-01] MEDS: ENOXAPARIN NA (PORCINE) 60 MG/0.6 ML DISP.SYRIN SQ SCH (09:19)
[2017-09-01] MEDS: CARVEDILOL 3.125 MG TABLET (FP) PO SCH (09:19)
[2017-09-01] MEDS: CYANOCOBALAMIN 1,000 MCG TABLET (FP) PO SCH (09:20)
[2017-09-01] MEDS: PANTOPRAZOLE 20 MG TABLET (FP) PO SCH (09:20)
[2017-09-01] MEDS: QUEtiapine FUMARATE 100 MG TABLET (FP) PO SCH (09:22)
[2017-09-01] MEDS ORDERED: ASPIRIN COATED 81 MG TABLET.EC PO SCH (10:00)
--- NOTE | 2017-09-01 11:53 | PN ---
Progress Note, Physician History of Present Illness: Patient denies c/o this morning, no chest pain or palpitations. 1:1 observer sitting at bedside. - Current Medication List Current Medications: Active Medications Aspirin (Ecotrin -) 81 mg PO DAILY [facility] Last Admin: 09/01/17 09:20 Dose: 81 mg Cyanocobalamin (Vitamin B12 -) 1,000 mcg PO DAILY [facility] Last Admin: 09/01/17 09:20 Dose: 1,000 mcg Digoxin (Lanoxin -) 0.125 mg PO DAILY [facility] Last Admin: 09/01/17 09:19 Dose: 0.125 mg Enoxaparin Sodium (Lovenox -) 60 mg SQ Q12H [facility] Last Admin: 09/01/17 09:19 Dose: 60 mg Lorazepam (Ativan Injection -) 0.5 mg IM Q8H PRN PRN Reason: AGITATION Last Admin: 08/27/17 13:56 Dose: 0.5 mg Metoprolol Tartrate (Lopressor Injection -) 2.5 mg IVPUSH Q4H PRN PRN Reason: TACHYCARDIA Last Admin: 08/28/17 11:05 Dose: 2.5 mg Multivitamins/Minerals/Vitamin C (Tab-A-Vit -) 1 tab PO DAILY [facility] Last Admin: 09/01/17 09:19 Dose: 1 tab Pantoprazole Sodium (Protonix -) 20 mg PO DAILY [facility] Last Admin: 09/01/17 09:20 Dose: 20 mg Propranolol HCl (Inderal -) 40 mg PO TID [facility] Quetiapine Fumarate (Seroquel -) 100 mg PO DAILY [facility] Last Admin: 09/01/17 09:22 Dose: 100 mg Torsemide (Demadex -) 20 mg PO Q2D [facility] Last Admin: 08/31/17 12:18 Dose: 20 mg - Objective Vital Signs: Vital Signs Temperature 98 F 09/01/17 06:00 Pulse Rate 80 09/01/17 09:19 Respiratory Rate 18 09/01/17 06:00 Blood Pressure 122/60 09/01/17 06:00 O2 Sat by Pulse Oximetry (%) 98 09/01/17 09:00 Constitutional: Yes: No Distress, Calm Neck: Yes: Supple, Trachea Midline Cardiovascular: Yes: Regular Rate and Rhythm, Murmur, S1, S2 Respiratory: Yes: Regular, CTA Bilaterally. No: Rales, Rhonchi, Wheezes Gastrointestinal: Yes: Normal Bowel Sounds, Soft. No: Distention, Tenderness Edema: No Labs: CBC, BMP 09/01/17 05:20 09/01/17 05:20 Assessment/Plan Current Active Problems AAA (abdominal aortic aneurysm) (Acute) Altered mental status (Acute) Atrial fibrillation with rapid ventricular response (Acute) Chest pain (Acute) Dementia (Acute) HTN (hypertension) (Acute) Hypercholesteremia (Acute) -tentative d/c planning for STR at [facility] (awaiting bed). given elevated TSH on lab earlier this week will start on low-dose synthroid (will need follow-up TSH4-6 weeks)
[2017-09-01] MEDS: PROPRANOLOL HCL 40 MG TABLET PO SCH ×2 (12:19→15:09)
[2017-09-01 15:38] VITALS: BP 107/67; PULSE 86; TEMP 97.5
== END 2017-09-01 16:45 | DRG 307 ==
LOC: JER 13:01 → JERBED 16:34 → J4W 19:57 → OBSVTOIN 08-28 11:15
PROVIDERS: ADMIT Internal Medicine; ATTEND Internal Medicine
DX: I35.1 Nonrheumatic aortic (valve) insufficiency (principal); F03.90 Unspecified dementia, unspecified severity, without behavioral disturbance, psychotic disturbance, mood disturbance, and anxiety; R07.9 Chest pain, unspecified; I11.0 Hypertensive heart disease with heart failure; I50.9 Heart failure, unspecified; E78.00 Pure hypercholesterolemia, unspecified; I71.4 Abdominal aortic aneurysm, without rupture; I48.91 Unspecified atrial fibrillation; I71.2 Thoracic aortic aneurysm, without rupture; E53.8 Deficiency of other specified B group vitamins
CPT/HCPCS: 36415; 70450-TC; 71020-TC; 71275-TC; 74175-TC; 76775-TC; 80048; 80053; 80061; 80162; 81003; 82550; 82607; 82747; 83036; 83690; 83721; 83735; 84100; 84443; 84484; 85014; 85025; 93005; 93010; 93306-TC; 93975; 97116-GP; 97162-GP; 99283-25; G0378

== ENCOUNTER 2018-01-15 02:25 | Emergency (ER) | payer OTHER, MEDICARE ==
--- NOTE | 2018-01-15 02:40 | PDOC ---
History of Present Illness - General Chief Complaint: Injury Stated Complaint: FELL HITTING HEAD, DENIES LOC Time Seen by Provider: 01/15/18 02:28 - History of Present Illness Initial Comments: This 88-year-old with a history of dementia, hypothyroidism, thoracic aortic aneurysm and anxiety presents with history of head injury, brought in by ambulance. Patient resides in the memory unit at the [facility] ; tonight, patient fell, striking the back of her head. Patient is unclear how she fell. According to EMS, staff states that they witnessed the fall and there was no loss of consciousness. Currently, the patient is awake and responsive, oriented to place and person. She has some discomfort in the area of impact in the back of her head and also states that her "throat" hurts. Upon further questioning, pain is actually in the left side of her neck. She denies chest pain/abdominal pain, shortness of breath. Past History - Past Medical History Allergies/Adverse Reactions: Allergies Allergy/AdvReac Type Severity Reaction Status Date / Time No Known Allergies Allergy Verified 01/15/18 02:29 Home Medications: Ambulatory Orders Aspirin [ASA -] 81 mg PO DAILY 10/09/17 Cyanocobalamin [Vitamin B12 -] 1,000 mcg PO DAILY 10/09/17 Digoxin 125 mcg PO DAILY 10/09/17 Levothyroxine [Synthroid -] 50 mcg PO DAILY 10/09/17 Potassium Chloride [Klor-Con 10] 10 meq PO DAILY 10/09/17 Propranolol HCl 40 mg PO Q8H 10/09/17 Quetiapine Fumarate [Seroquel -] 50 mg PO HS 10/09/17 Torsemide [Demadex -] 20 mg PO DAILY 10/09/17 clonazePAM [KlonoPIN] 0.5 mg PO HS 10/09/17 Mirtazapine [Remeron -] 15 mg PO HS 01/15/18 Cardiac Disorders: Yes (afib, THORAXIC LARGE AORTIC ANEURYSM 6CM) COPD: No Dementia: Yes (W/PSYCHOSIS AND CHEST PAIN.) HTN: Yes Thyroid Disease: Yes (HYPOTHYROID) - Immunization History Immunization Up to Date: No - Suicide/Smoking/Psychosocial Hx Smoking History: Never smoked Have you smoked in the past 12 months: No Hx Alcohol Use: No Drug/Substance Use Hx: No Substance Use Type: None Review of Systems - Review of Systems Able to Perform ROS?: Yes Comments:: 12 point review of systems is negative except for what is noted in the history of present illness *Physical Exam - Physical Exam Comments: GENERAL: Elderly female, awake and responsive, oriented to person and place, in no acute distress HEAD: Mildly tender 2 cm x 2 cm hematoma left parieto-occipital area; no abrasion/lacerations evident. EYES: PERRLA, EOMI, sclera anicteric, conjunctiva clear. ENT: Ears normal, nares patent, oropharynx clear without exudates. Small amount of dried blood around her upper and lower lips; no lingual or buccal injury/abrasion/laceration seen. NECK: Normal range of motion, supple without lymphadenopathy, JVD, or masses. Mild tenderness left side C3/4/5 LUNGS: Breath sounds equal, clear to auscultation bilaterally. No wheezes, and no crackles. HEART:Regular rate and rhythm, normal S1 and S2 without murmur, rub or gallop. ABDOMEN:.normal bowel sounds No guarding,tenderness or rebound.No masses No distention. EXTREMITIES: Normal range of motion, no edema. No clubbing or cyanosis. No erythema, or tenderness. NEUROLOGICAL: Cranial nerves II through XII grossly intact. Normal speech. No focal neurological deficits. MUSCULOSKELETAL: Back non-tender to palpation, no CVA tenderness SKIN: Warm, Dry, normal turgor, no rashes or lesions noted. Progress Note - Progress Note Progress Note: Noncontrast head CT and cervical spine CT negative for acute intracranial injury /skull fracture/vertebral fracture or other acute process. Results discussed with patient's niece and with the patient. She will be returning to the [facility] memory unit(niece will be driving her there). She should it have her head elevated as much as possible over the next few days with cold compresses to the area of scalp contusion. Medication should be continued as previously and she should return to the emergency room if she has headache/vomiting/lightheadedness. *DC/Admit/Observation/Transfer Diagnosis at time of Disposition: Scalp contusion Qualifiers: Encounter type: initial encounter Qualified Code(s): S00.03XA - Contusion of scalp, initial encounter Neck strain Qualifiers: Encounter type: initial encounter Qualified Code(s): S16.1XXA - Strain of muscle, fascia and tendon at neck level, initial encounter - Discharge Dispostion Disposition: RETIREMENT FACILITY Condition at time of disposition: Stable - Referrals - Patient Instructions Printed Discharge Instructions: Closed Head Injury Additional Instructions: Have head elevated for the next 24 hours Call compresses to scalp contusion Continue all medication as previously Follow-up with general doctor within the next 5 days - Post Discharge Activity
[2018-01-15 02:49] VITALS: BP 137/68; PULSE 73; TEMP 97.6; BMI 23.8
== END 2018-01-15 04:41 ==
LOC: FER 02:25
DX: S00.03XA Contusion of scalp, initial encounter (principal); S16.1XXA Strain of muscle, fascia and tendon at neck level, initial encounter
CPT/HCPCS: 70450-TC; 72125-TC; 99281-25